=== PATIENT | female | born 1980 | race Caucasian/White ===

== ENCOUNTER 2016-07-21 08:25 | Inpatient (IN) | payer OTHER, MEDICARE ==
[~2016-07-21] VITALS: Ht 157.5 cm; Wt 44.9 kg
--- NOTE | 2016-07-21 08:37 | NUR ---
PT TO ED FOR MULTIPLE COMPLAINTS, REPORTING SUBJECTIVE FEVERS, ABD PAIN WITH VOMITING, ABD HERNIA PAIN, ALTERNATING CONSTIPATION AND DIARRHEA, ALSO STATING SHE BELIEVES "SOMETHING BITE ME AND IT LOOKED LIKE I HAD A HICKIE BUT I HAVEN'T HAD A DATE SO I ASSUME IT WAS A BUG" PT ALSO REPORTING FINDING A "TICK HEAD" IN HER SCALP APPROX 1 WEEK AGO.
--- NOTE | 2016-07-21 08:37 | NUR ---
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
--- NOTE | 2016-07-21 08:38 | NUR ---
PT ATTEMPTING TO DRINK GINGERALE IN TRIAGE, INSTRUCTED NOT TO DUE TO HER ABD PAIN
--- NOTE | 2016-07-21 08:40 | ED GI/GU/ABDOMINAL COMPLAINT ---
History of Present Illness General Chief Complaint: Abdominal Pain/Flank Pain Stated Complaint: LOWER ABD PAIN, FEVER LAST NIGHT Source: patient, family, old records Exam Limitations: no limitations Vital Signs & Intake/Output Vital Signs & Intake/Output Vital Signs Date Time Temp Pulse Resp B/P B/P Pulse O2 O2 Flow FiO2 Mean Ox Delivery Rate 07/21 1038 97.6 120 20 133/74 100 07/21 0859 98 Room Air 07/21 0833 96.7 141 18 114/81 100 Room Air Allergies Coded Allergies: titanium (UNKNOWN 07/21/16) TITANIUM DYE Reconcile Medications Budesonide/Formoterol Fumarate (Symbicort 80-4.5 Mcg Inhaler) (Unknown Strength) HFA.AER.AD (Unknown Dose) INH BID ASTHMA (Reported) Carisoprodol (SOMA) 350 MG TABLET 2 TAB PO Q4 PRN PAIN (Reported) Chlorzoxazone (Lorzone) 750 MG TABLET 1 TAB PO 4 TIMES/DAY PRN PAIN (Reported ) Hydrocodone/Acetaminophen (Vicodin Hp 10-300 MG Tablet) 10 MG-300 MG TABLET 1 TAB PO BID PRN PAIN (Reported) Ibuprofen 800 MG TABLET 1 TAB PO TID PAIN (Reported) Levalbuterol Tartrate (Xopenex Hfa) 45 MCG/ACTUATION HFA.AER.AD 2 PUF INH Q4-6 PRN PRN ASTHMA (Reported) Triage Note: PT TO ED FOR MULTIPLE COMPLAINTS, REPORTING SUBJECTIVE FEVERS, ABD PAIN WITH VOMITING, ABD HERNIA PAIN, ALTERNATING CONSTIPATION AND DIARRHEA, ALSO STATING SHE BELIEVES "SOMETHING BITE ME AND IT LOOKED LIKE I HAD A HICKIE BUT I HAVEN'T HAD A DATE SO I ASSUME IT WAS A BUG" PT ALSO REPORTING FINDING A "TICK HEAD" IN HER SCALP APPROX 1 WEEK AGO. Triage Nurses Notes Reviewed? yes ? N Is pt currently ? No HPI: This is a very pleasant 36-year-old female who presents to the ER chief complaint abdominal pain on and off for the past week. She states that initially she started with constipation and generalized abdominal pain. After that she developed diarrhea with vomiting. She states that she had an intermittent today where she felt much better and had some food. She states that made it worse. She feels pain at her hernia site. No history of previous surgeries. Is unable to tolerate any by mouth's. She is on Vicodin twice a day for pain management secondary to multiple ankle surgeries which she has been able to take. Denies any fever or chills. Denies any sick contacts. Last vessel. Was trace ago within normal limits. She's not been sexually active for the past 3 years. Denies any chance of . Denies any vaginal discharge. Past History Travel History Traveled to [place] past 21 day No Medical History Any Pertinent Medical History? see below for history Neurological: NONE EENT: NONE Cardiovascular: HEART MURMUR Respiratory: asthma Gastrointestinal: NONE Hepatic: NONE Renal: NONE Musculoskeletal: CHRONIC PAIN Psychiatric: NONE Blood Disorders: NONE Cancer(s): NONE Surgical History Surgical History: 19 ANKLE SURGERIES Psychosocial History What is your primary language Jamaican Tobacco Use: Current Daily Use Daily Tobacco Use Amount/Type: => 5 Cigarettes daily ETOH Use: occasional use Illicit Drug Use: marijuana Review of Systems Review of Systems Constitutional: Reports: chills. Denies: fever. Respiratory: Reports: no symptoms. Cardiovascular: Reports: no symptoms. GI: Reports: abdominal pain, bloating, constipation, nausea, vomiting. Genitourinary: Reports: no symptoms. Skin: Reports: no symptoms. Hematologic/Endocrine: Denies: bruising, bleeding, polyuria, polydipsia. Immunologic/Allergic: Denies: splenectomy. All Other Systems: Reviewed and Negative Progress Plan of Care: Orders Procedure Date/time Status Add-on Test (ER Only) 07/21 1229 Active Ambriz, Insertion/Removal/Asses 07/21 1212 Active CULTURE,URINE 07/21 1212 Active Add-on Test (ER Only) 07/21 1209 Active EKG 07/21 1115 Active Add-on Test (ER Only) 07/21 1110 Active URINE 07/21 0945 Complete TYPE & SCREEN (NOT X-MATCH) 07/21 0854 Complete URINALYSIS 07/21 0848 Complete PARTIAL THROMBOPLASTIN TIME 07/21 0848 Complete PROTHROMBIN TIME 07/21 0848 Complete LYME TITRE 07/21 0848 Complete LIPASE 07/21 0848 Complete COMPREHENSIVE METABOLIC PANEL 07/21 0848 Complete CBC WITHOUT DIFFERENTIAL 07/21 0848 Complete AMYLASE 07/21 0848 Complete Current Medications Sig/Tom Start time Last Medication Dose Stop Time Status Admin Ampicillin Sodium/ 3,000 MG ONCE ONE 07/21 1115 CAN Sulbactam Sodium 07/21 1144 (Unasyn) Sodium Chloride 100 ML (Normal Saline 0.9%) Laboratory Tests 07/21/16944: Urine Test NEGATIVE 07/21/16944: Urine Color YEL, Urine Clarity CLEAR, Urine pH 6.0, Ur Specific [place] 1.010, Urine Protein TRACE H, Urine Ketones NEG, Urine Nitrite NEG, Urine Bilirubin NEG, Urine Urobilinogen 0.2, Ur Leukocyte Esterase NEG, Ur Microscopic SEDIMENT EXAMINED, Urine RBC 1-3, Urine WBC 1-3 H, Ur Epithelial Cells MOD H, Urine Bacteria MOD H, Urine Hemoglobin NEG, Urine Glucose NEG 07/21/16 0854: Anion Gap 12, Estimated GFR > 60, BUN/Creatinine Ratio 18.8, Glucose 109 H, Calcium 8.6, Total Bilirubin 0.5, AST 30, ALT 26, Alkaline Phosphatase 59, Total Protein 6.3, Albumin 3.4 L, Globulin 2.9, Albumin/Globulin Ratio 1.2, Amylase 147 H, Lipase 48, PT 14.2 H, INR 1.36 H, APTT 31, CBC w Diff MAN DIFF ORDERED , RBC 5.22, MCV 91.2, MCH 30.0, RDW 14.4, MPV 7.6, Segmented Neutrophils 30 L, Band Neutrophils 27 H, Lymphocytes 12 L, Monocytes 31 H, Platelet Estimate VERIFIED BY SMEAR, Normocytic RBCs VERIFIED, Normochromic RBCs VERIFIED, PUBS MCHC 32.9 L, Lyme Disease Antibody 0.29 Microbiology 07/21 944 URINE ROUT: Urine Culture - RECD CT - DIFFUSE SMALL AND LARGE BOWEL WALL THICKENING, ? DIFFUSE ENTEROCOLITIS, SCATTERED FREE AIR, SMALL AMOUNT OF ASCITES, CAN'T TELL WHERE PERFORATION IS 11:11 SURGERY PAGED 11:[address] WILLARD IN OR - MADE AWARE BY SCRUB NURSE [facility] SURGICAL PA INFORMED. (ALONSO DENISE,JOSEPH) Diagnostic Imaging: Viewed by Me: CT Scan. Discussed w/RAD: CT Scan. Departure Departure Time of Disposition: 3 Disposition: STILL A PATIENT Condition: Stable Clinical Impression Primary Impression: Perforated bowel Referrals: PATIENT HAS NO PRIMARY CARE DR Departure Forms: Customer Survey General Discharge Information OR/GI Note Spoke With: ADONAY DENISE,MIKEY Doan ED Treatment Decision: BYRON BURT requires urgent operative management or an emergent procedure that cannot be performed in the Emergency Room setting. Transport To: [facility] Critical Care Note Critical Care Note Critical Care Time: 30-74 min
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
--- NOTE | 2016-07-21 08:59 | NUR ---
IV EST. PT MEDICATED PER EMAR AT THIS TIME.
[2016-07-21 09:07] LABS: HEMATOCRIT 47.5 % (37-47); MEAN CORPUSCULAR HGB CONC 32.9 G/DL (33.0-37.0); MEAN CORPUSCULAR VOLUME 91.2 FL (81.0-99.0); MEAN PLATELET VOLUME 7.6 FL (7.4-10.4); PLATELET COUNT 365 /CUMM (130-400); RBC DISTRIBUTION WIDTH 14.4 % (11.5-14.5); RED BLOOD CELL CT 5.22 /CUMM (4.20-5.40); WHITE BLOOD CELL COUNT 18.6 /CUMM (4.8-10.8)
[2016-07-21 09:13] LABS: PT 14.2 SEC (9.4-12.5); PTT 31 SEC (25-37)
--- NOTE | 2016-07-21 09:30 | NUR ---
PT STATING HER PAIN IS COMING BACK AT THIS TIME, STATES SHE ONLY HAD SLIGHT RELIEF FROM PRIOR MORPHINE ADMINISTRATION. MEDICATED WITH 6MG IV MORPHINE PER MD ORDER AT THIS TIME.
--- NOTE | 2016-07-21 09:54 | NUR ---
SECOND LITER NS INFUSING PER ORDER AT THIS TIME
[2016-07-21] MEDS ORDERED: VICODIN HP 10-1 EACH PO (10:23)
[2016-07-21] MEDS ORDERED: SOMA350 M1 PO (10:24)
[2016-07-21] MEDS ORDERED: IBUPROFEN800 M1 PO (10:24)
[2016-07-21] MEDS ORDERED: SYMBICORT 80-10.2 GM INH (10:25)
[2016-07-21] MEDS ORDERED: LORZONE750 M1 PO (10:25)
[2016-07-21] MEDS ORDERED: XOPENEX HFA15 GM INH (10:26)
--- NOTE | 2016-07-21 10:49 | NUR ---
PT TO AND FROM CT SCAN AT THIS TIME
--- NOTE | 2016-07-21 10:56 | NUR ---
PT TO AND FROM [facility] AT THIS TIME, STATES PAIN IS WORSE WITH MOVEMENT IN ABDOMEN. AWARE WAITING FOR CT SCAN RESULTS AT THIS TIME
--- NOTE | 2016-07-21 11:28 | NUR ---
PT MEDICATED WITH DILAUDID PER ORDER AT THIS TIME
--- NOTE | 2016-07-21 11:35 | NUR ---
PINK TOP HEMOLYZED. NEEDS REDRAW
--- NOTE | 2016-07-21 11:39 | NUR ---
PT MEDICATED PER EAMR AT THIS TIME. SURGICAL PA AT BEDSIDE.
--- NOTE | 2016-07-21 11:41 | CT SCAN REPORT ---
EXAMINATION: CT ABDOMEN AND PELVIS WITH CONTRAST CLINICAL INFORMATION: Abdominal pain, vomiting, palpable epigastric hernia. Presumptive diagnosis: Obstruction. COMPARISON: None TECHNIQUE: Multidetector volumetric imaging was performed of the abdomen and pelvis before and after the IV administration of 95 mL of Optiray 320 intravenous contrast. Sagittal and coronal reformatted images were obtained on the technologist's workstation. DLP: 263.39 mGy-cm FINDINGS: LUNG BASES: There are ill-defined scattered ground-glass opacities at both lung bases. This may represent atelectasis or a subtle inflammatory process. LIVER, GALLBLADDER, AND BILIARY TREE: The liver is normal in size, shape, and attenuation. No focal hepatic lesion or biliary ductal dilatation is present. The gallbladder is unremarkable with no evidence of radiopaque gallstones, gallbladder wall thickening, or obvious pericholecystic inflammatory changes. PANCREAS: Unremarkable. SPLEEN: Unremarkable. ADRENAL GLANDS: Unremarkable. KIDNEYS AND URETERS: There are a few scattered tiny calcifications in both kidneys. There is a focal area of moderate scarring in the posterior aspect of the upper pole of the left kidney. There is nonspecific mild bilateral hydronephrosis. BLADDER: Unremarkable. GASTROINTESTINAL TRACT: There is diffuse thickening of the wall of the small and large bowel. There are scattered bubbles of free air in the mesentery, adjacent to small and large bowel loops, and independently in the anterior aspect of the upper abdomen. There is a small amount of ascites in the abdomen and pelvis. The appendix is not clearly identified. ABDOMINAL WALL: No significant hernia is appreciated. LYMPH NODES: Normal. VASCULAR: Unremarkable. PELVIC VISCERA: Unremarkable. OSSEOUS STRUCTURES: Unremarkable. IMPRESSION: 1. Scattered ill-defined ground-glass opacities at the lung bases which may represent atelectasis or a subtle inflammatory process. 2. Diffuse small and large bowel wall thickening suspicious for enterocolitis. Scattered bubbles of free air suspicious for a perforation. A small amount of ascites in the abdomen and pelvis. 3. Scattered small bilateral renal calculi. Nonspecific mild bilateral hydronephrosis. This Critical Result was discussed with Merlyn Razo on 07/21/2016 at 1115 hours.
--- NOTE | 2016-07-21 12:23 | NUR ---
[place] PLACED PER ORDER AT THIS TIME, PT STATING SHE FELS THE URGE TO VOID BUT UNABLE TO GO AT THIS TIME.
--- NOTE | 2016-07-21 12:27 | NUR ---
DR KNOWLES AT BEDSIDE
--- NOTE | 2016-07-21 13:08 | NUR ---
PER OR, DISTRIBUTION COMMING TO GET PT AT THIS TIME. PT PERFORMING PRE-OP SCRUB AT THIS TIME
--- NOTE | 2016-07-21 13:15 | NUR ---
[facility] HERE TO TAKE PT TO OR
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
--- NOTE | 2016-07-21 17:54 | Admission Core Measures ---
Admission Lab Results I reviewed the following labs: Laboratory Tests 07/21 07/21 0969 0945 Urines Urine Color (YEL,AMB,STR) YEL Urine Clarity (CLEAR) CLEAR Urine pH (5.0 - 8.0) 6.0 Ur Specific [place] (1.001 - 1.035) 1.010 Urine Protein (NEG,<30 MG/DL) TRACE H Urine Ketones (NEG) NEG Urine Nitrite (NEG) NEG Urine Bilirubin (NEG) NEG Urine Urobilinogen (0.1 - 1.0 EU/dl) 0.2 Ur Leukocyte Esterase (NEG) NEG Ur Microscopic SEDIMENT EXAMINED Urine RBC (0 - 5 /HPF) 1-3 Urine WBC (0 - 2 /HPF) 1-3 H Ur Epithelial Cells (NONE,FEW) MOD H Urine Bacteria (NEG/NONE) MOD H Urine Hemoglobin (NEG) NEG Urine Glucose (N MG/DL) NEG Urine Test NEGATIVE 07/21 0854 Chemistry Sodium (137 - 145 mmol/L) 133 L Potassium (3.5 - 5.1 mmol/L) 3.9 Chloride (98 - 107 mmol/L) 97 L Carbon Dioxide (22 - 30 mmol/L) 24 Anion Gap (5 - 16) 12 BUN (7 - 17 mg/dL) 15 Creatinine (0.5 - 1.0 mg/dL) 0.8 Estimated GFR (>60 ml/min) > 60 BUN/Creatinine Ratio (7 - 25 %) 18.8 Glucose (65 - 99 mg/dL) 109 H Calcium (8.4 - 10.2 mg/dL) 8.6 Total Bilirubin (0.2 - 1.3 mg/dL) 0.5 AST (14 - 36 U/L) 30 ALT (9 - 52 U/L) 26 Alkaline Phosphatase (<127 U/L) 59 Total Protein (6.3 - 8.2 g/dL) 6.3 Albumin (3.5 - 5.0 g/dL) 3.4 L Globulin (1.9 - 4.2 gm/dL) 2.9 Albumin/Globulin Ratio (1.1 - 2.2 %) 1.2 Amylase (30 - 110 U/L) 147 H Lipase (23 - 300 U/L) 48 Coagulation PT (9.4 - 12.5 SEC) 14.2 H INR (0.90 - 1.19) 1.36 H APTT (25 - 37 SEC) 31 Hematology CBC w Diff MAN DIFF ORDERED WBC (4.8 - 10.8 /CUMM) 18.6 H RBC (4.20 - 5.40 /CUMM) 5.22 Hgb (12.0 - 16.0 G/DL) 15.6 Hct (37 - 47 %) 47.5 H MCV (81.0 - 99.0 FL) 91.2 MCH (27.0 - 31.0 PG) 30.0 RDW (11.5 - 14.5 %) 14.4 Plt Count (130 - 400 /CUMM) 365 MPV (7.4 - 10.4 FL) 7.6 Segmented Neutrophils (42.2 - 75.2 %) 30 L Band Neutrophils (0.0 - 5.0 %) 27 H Lymphocytes (20.5 - 51.1 %) 12 L Monocytes (1.7 - 9.3 %) 31 H Platelet Estimate (ADEQUATE) VERIFIED BY SMEAR Normocytic RBCs VERIFIED Normochromic RBCs VERIFIED PUBS MCHC (33.0 - 37.0 G/DL) 32.9 L Serology Lyme Disease Antibody (RATIO) 0.29 Admission Meds I reviewed the following Meds: Current Medications Sig/Tom Start time Last Medication Dose Stop Time Status Admin Albuterol Sulfate 2 PUF Q4 PRN 07/21 1800 UNVr (Ventolin) Ampicillin Sodium/ 3,000 MG ONCE ONE 07/21 1115 CAN Sulbactam Sodium 07/21 1144 (Unasyn) Sodium Chloride 100 ML (Normal Saline 0.9%) Budesonide/ 2 PUF BID 07/21 2200 UNVr Formoterol Fumarate (SYMBICORT) Diazepam 2 MG ONCE PRN 07/21 1800 UNVr (Valium) Nicotine 21 MG DAILY 07/22 1000 UNVr (Nicoderm) Acute Coronary Syndrome Inclusion Criteria ACS Diagnosis No Inpatient Core Measures LDL Reminder: If No, please order W/I first 24hr of stay Congestive Heart Failure Inclusion Criteria CHF Diagnosis No Cerebrovascular accident Inclusion Criteria CVA/TIA Diagnosis No Inpatient Core Measures Bedside Swallow Eval Reminder: If BSE failed, place ST order Antithrombotic Reminder: Order Antithrombotic Medication by end of day 2 Antithrombotic Reminder: Document Reason Antithrombotic Not ordered by end of day 2 AFIB/Flutter Reminder: If Present, add to problem list AFIB/Flutter Reminder: Order Anticoag Medication for pts with AFIB/Flutter Atherosclerosis Reminder: If Present, add to problem list LDL Reminder: If No, please order W/I first 24hr of stay PT Order Reminder: If No, please order Venous thromboembolism Inpatient Core Measures VTE Risk Factors: Surgery No [facility] VTE prophylaxis d/t No contraindications No VTE Pharm Prophylaxis d/t No contraindications Inclusion Criteria - Per Current guidelines, there needs to be overlap - treatment for the first 5 days of Warfarin therapy. - Parenteral Anticoagulation (IV or SC) needs to be - given along with Warfarin therapy. VTE Diagnosis No VTE Type NONE VTE Confirmed by (Test) NONE Problem List As ranked by this Provider includes Assessment & Plan 1. Perforated bowel 2. Peritonitis HOME MEDS Home Med List Budesonide/Formoterol Fumarate (Symbicort 80-4.5 Mcg Inhaler) (Unknown Strength) HFA.AER.AD (Unknown Dose) INH BID ASTHMA (Reported) Carisoprodol (SOMA) 350 MG TABLET 2 TAB PO Q4 PRN PAIN (Reported) Chlorzoxazone (Lorzone) 750 MG TABLET 1 TAB PO 4 TIMES/DAY PRN PAIN (Reported ) Hydrocodone/Acetaminophen (Vicodin Hp 10-300 MG Tablet) 10 MG-300 MG TABLET 1 TAB PO BID PRN PAIN (Reported) Ibuprofen 800 MG TABLET 1 TAB PO TID PAIN (Reported) Levalbuterol Tartrate (Xopenex Hfa) 45 MCG/ACTUATION HFA.AER.AD 2 PUF INH Q4-6 PRN PRN ASTHMA (Reported)
[2016-07-21 20:00] VITALS: BP 130/70
--- NOTE | 2016-07-21 21:41 | PN- General Surgery ---
Subjective Subjective: POSTOP CHECK pain, requesting more meds. no n/v/cp/sob. itchy Objective Vital Signs and I&Os Vital Signs Date Time Temp Pulse Resp B/P B/P Pulse O2 O2 Flow FiO2 Mean Ox Delivery Rate 07/21 1957 95 Nasal 3.0L Cannula 07/21 1301 97.7 120 18 128/76 95 Room Air 07/21 1038 97.6 120 20 133/74 100 07/21 0859 98 Room Air 07/21 0833 96.7 141 18 114/81 100 Room Air Intake & Output 07/21 1600 07/21 0807/21 0000 07/20 1600 07/20 0807/20 0000 Intake Total 2000 Output Total Balance 2000 Intake, IV 1999 Patient 99 lb 15.99 oz Weight Weight Reported by Patient Measurement Method Physical Exam: GEN: NAD SKIN: no rashes CARD: s1s2 tachy but regular PULM: CTAB ABD: midline dressing serosang staining, distended, tympanic, ttp thoughoutm, stoma pink and edematous, scant serosang drainage in bag EXT:calves soft, nt, no ALPS Current Medications: Current Medications Sig/Tom Start time Last Medication Dose Route Stop Time Status Admin Acetaminophen 1,000 MG Q6H PRN 07/22 1999 AC N/A 1 UNIT IV Albuterol Sulfate 2 PUF Q4P PRN 07/21 1800 DC INH Ampicillin Sodium/ 3,000 MG ONCE ONE 07/21 1115 CAN Sulbactam Sodium IV 07/21 1144 Sodium Chloride 100 ML Budesonide/ 2 PUF BID 07/21 2200 DC Formoterol Fumarate INH Ceftriaxone Sodium 1,000 MG DAILY 07/22 1000 AC IV Ceftriaxone Sodium 0 .STK-MED ONE 07/21 1135 DC .ROUTE Ceftriaxone Sodium 1,000 MG ONCE ONE 07/21 1130 DC 07/21 IV 07/21 1131 1139 Diazepam 2 MG ONCE PRN 07/21 1800 DC IV Heparin Sodium 5,000 UNIT Q8 07/22 0600 DC (Porcine) SC Hydromorphone HCl 1 MG Q2-3 HRS NEEDED.. 07/22 1999 AC 07/21 IV 2030 Hydromorphone HCl 0.4 MG Q2-3 HRS NEEDED.. 07/22 1999 AC IV Hydromorphone HCl 0.6 MG Q3 PRN 07/21 1800 AC IV Hydromorphone HCl 0 .STK-MED ONE 07/21 1113 DC .ROUTE Hydromorphone HCl 1 MG ONCE ONE 07/21 1100 DC / IV 07/21 1101 1128 Metronidazole 500 MG IQ8 07/22 0000 AC N/A 1 UNIT IV Metronidazole 500 MG ONCE ONE 07/21 1130 DC 07/21 N/A 1 UNIT IV / 1229 1139 Morphine Sulfate 0 .STK-MED ONE 07/21 0933 DC .ROUTE Morphine Sulfate 6 MG ONCE ONE 07/21 0930 DC 07/21 IV 07/21 0931 0930 Morphine Sulfate 4 MG ONCE ONE 07/21 0900 DC / IV 07/21 0901 0858 Morphine Sulfate 0 .STK-MED ONE 07/21 0858 DC .ROUTE Nicotine 21 MG DAILY 07/22 1000 DC TOP Nicotine 0 .STK-MED ONE 07/21 1135 DC TOP Nicotine 21 MG ONCE ONE 07/21 1130 DC 07/21 TOP 07/21 1131 1139 Ondansetron HCl 4 MG ONCE ONE 07/21 0900 DC 07/21 IV 07/21 0901 0858 Ondansetron HCl 0 .STK-MED ONE 07/21 0857 DC .ROUTE Potassium Chloride 20 MEQ Q10H 07/21 2000 AC 07/21 Dextrose/Sodium 1,000 ML IV 2031 Chloride Sodium Chloride 1,000 ML BOLUS ONE 07/21 1130 DC / IV / 1229 1144 Sodium Chloride 1,000 ML BOLUS ONE 07/21 1000 DC / IV 07/21 1059 0954 Sodium Chloride 1,000 ML BOLUS ONE 07/21 0900 DC / IV 07/21 0959 0850 Results Last 48 Hours of Labs: Laboratory Tests 07/21 07/21 0945 0945 Urines Urine Color (YEL,AMB,STR) YEL Urine Clarity (CLEAR) CLEAR Urine pH (5.0 - 8.0) 6.0 Ur Specific T[place] (1.001 - 1.035) 1.010 Urine Protein (NEG,<30 MG/DL) TRACE H Urine Ketones (NEG) NEG Urine Nitrite (NEG) NEG Urine Bilirubin (NEG) NEG Urine Urobilinogen (0.1 - 1.0 EU/dl) 0.2 Ur Leukocyte Esterase (NEG) NEG Ur Microscopic SEDIMENT EXAMINED Urine RBC (0 - 5 /HPF) 1-3 Urine WBC (0 - 2 /HPF) 1-3 H Ur Epithelial Cells (NONE,FEW) MOD H Urine Bacteria (NEG/NONE) MOD H Urine Hemoglobin (NEG) NEG Urine Glucose (N MG/DL) NEG Urine Test NEGATIVE 07/21 0854 Chemistry Sodium (137 - 145 mmol/L) 133 L Potassium (3.5 - 5.1 mmol/L) 3.9 Chloride (98 - 107 mmol/L) 97 L Carbon Dioxide (22 - 30 mmol/L) 24 Anion Gap (5 - 16) 12 BUN (7 - 17 mg/dL) 15 Creatinine (0.5 - 1.0 mg/dL) 0.8 Estimated GFR (>60 ml/min) > 60 BUN/Creatinine Ratio (7 - 25 %) 18.8 Glucose (65 - 99 mg/dL) 109 H Calcium (8.4 - 10.2 mg/dL) 8.6 Total Bilirubin (0.2 - 1.3 mg/dL) 0.5 AST (14 - 36 U/L) 30 ALT (9 - 52 U/L) 26 Alkaline Phosphatase (<127 U/L) 59 Total Protein (6.3 - 8.2 g/dL) 6.3 Albumin (3.5 - 5.0 g/dL) 3.4 L Globulin (1.9 - 4.2 gm/dL) 2.9 Albumin/Globulin Ratio (1.1 - 2.2 %) 1.2 Amylase (30 - 110 U/L) 147 H Lipase (23 - 300 U/L) 48 Coagulation PT (9.4 - 12.5 SEC) 14.2 H INR (0.90 - 1.19) 1.36 H APTT (25 - 37 SEC) 31 Hematology CBC w Diff MAN DIFF ORDERED WBC (4.8 - 10.8 /CUMM) 18.6 H RBC (4.20 - 5.40 /CUMM) 5.22 Hgb (12.0 - 16.0 G/DL) 15.6 Hct (37 - 47 %) 47.5 H MCV (81.0 - 99.0 FL) 91.2 MCH (27.0 - 31.0 PG) 30.0 RDW (11.5 - 14.5 %) 14.4 Plt Count (130 - 400 /CUMM) 365 MPV (7.4 - 10.4 FL) 7.6 Segmented Neutrophils (42.2 - 75.2 %) 30 L Band Neutrophils (0.0 - 5.0 %) 27 H Lymphocytes (20.5 - 51.1 %) 12 L Monocytes (1.7 - 9.3 %) 31 H Platelet Estimate (ADEQUATE) VERIFIED BY SMEAR Normocytic RBCs VERIFIED Normochromic RBCs VERIFIED PUBS MCHC (33.0 - 37.0 G/DL) 32.9 L Serology Lyme Disease Antibody (RATIO) 0.29 Assessment/Plan Assessment/Plan A: 36F POD0 sp Marcus's for perf'ed sigmoid, hx constipation from chronic pain /opioid use, currently with postop pain requiring med adjustments. P: NPO, NGT, IVF, await bowel fxn return PRN pain meds- takes chronic narcs at baseline, will increase dilaudid IV and give ofirmev atc benadryl x1 for itch DVT ppx- ALPS, hep sq, OOB, ambulate. Refusing ALPS per RN. seymour/flagyl will dw attending Core Measures/Miscellaneous Venous Thromboembolism VTE Risk Factors: Surgery VTE Contraindications: No Contraindications VTE Diagnosis: No VTE Type: NONE VTE Confirmed by (Test): NONE Beta Camila Is Beta Camila a Home Med? No Antibiotics Is Patient on Antibiotics? Yes
[2016-07-21 22:00] VITALS: BP 122/60
--- NOTE | 2016-07-21 23:47 | NUR ---
PATIENT ADMITTED FROM PACU. PATIENT ALERT AND ORIENTED X 3. NGT TO R NARE ON LWS. BINGHAM INTACT AND DRAINING CLEAR, MARIANNA URINE. COLOSTOMY INTACT. MID LINE DRESSING CLEAN, DRY AND INTACT. PATIENT C/O PAIN AT 8/10. IV DILAUDID ADMINISTERED ORDERED. HR AT 121 ON ADMISSION TO FLOOR. NORM BENNETT AWARE. PATIENT REFUSED ALPS AND RED SOCKS. NORM BENNETT AWARE. CALL LIGHT IN REACH. WILL CONTINUE TO MONITOR.
[2016-07-22 00:07] VITALS: BP 114/70
[2016-07-22 02:09] VITALS: BP 124/74
[2016-07-22 06:00] VITALS: BP 150/84
[2016-07-22 08:20] LABS: ABSOLUTE BASOPHIL COUNT 0 /CUMM (0.0-0.2); ABSOLUTE EOSINOPHIL COUNT 0.2 /CUMM (0.0-0.7); ABSOLUTE LYMPH COUNT 1.9 /CUMM (1.2-3.4); ABSOLUTE MONOCYTE COUNT 0.2 /CUMM (0.10-0.60); MEAN PLATELET VOLUME 7.9 FL (7.4-10.4)
[2016-07-22 09:08] LABS: ABSOLUTE GRANULOCYTE CT 12.3 /CUMM (1.4-6.5); BASOPHIL % 0.1 % (0.0-2.0); EOSINOPHIL % 1.3 % (0-5); MEAN CORPUSCULAR HGB CONC 33.6 G/DL (33.0-37.0); MEAN CORPUSCULAR VOLUME 89.5 FL (81.0-99.0); PLATELET COUNT 296 /CUMM (130-400); RBC DISTRIBUTION WIDTH 14.7 % (11.5-14.5); RED BLOOD CELL CT 4.24 /CUMM (4.20-5.40); WHITE BLOOD CELL COUNT 14.6 /CUMM (4.8-10.8)
[2016-07-22 09:21] LABS: GRANULOCYTE % 84.2 % (42.2-75.2)
--- NOTE | 2016-07-22 11:08 | PN- General Surgery ---
See Addendum Subjective Subjective: Pt complaining of pain Of note she takes between 2 and 10 pills of 10mg vicodin daily at home Post op was on dilaudid IV but complaining of itching requiring benadryl times 2. No known history of allergy to dilaudid. No hives or SOB Objective Vital Signs and I&Os Vital Signs Date Time Temp Pulse Resp B/P B/P Pulse O2 O2 Flow FiO2 Mean Ox Delivery Rate 07/22 06 98.7 116 16 150/84 91 Room Air 07/22 0209 98.8 116 16 124/74 93 Room Air 07/22 0007 98.0 118 16 114/70 93 Room Air 07/22 0000 Nasal 3.0L Cannula 07/21 2200 98.7 113 20 122/60 92 Room Air 07/22 1999 95 Nasal 3.0L Cannula 07/22 1999 98.3 121 16 130/70 95 Nasal 3.0L Cannula 07/21 1958 95 Nasal 3.0L Cannula 07/21 1301 97.7 120 18 128/76 95 Room Air Intake & Output 07/22 1600 07/22 0800 07/22 0000 07/21 1600 07/21 0800 07/21 0000 Intake Total 8667 928 6391 Output Total 600 250 Balance 973 54 8315 Intake, IV 4075 549 7772 Intake, Oral 0 Output, 75 Gastric Drainage Output, Urine 525 250 Patient 99 lb 0.01 oz 99 lb 15.99 oz 99 lb 15.99 oz Weight Weight Reported by Patient Measurement Method Physical Exam: afebrile, vss General: alert and oriented times three Chest: clear anteriorly bilaterally, RRR Abd: soft, nondistended, hypoactive bs, ostomy pink with some serosang fluid in bag Wound: packing in place, mica intact, no drainage Current Medications: Current Medications Sig/Tom Start time Last Medication Dose Route Stop Time Status Admin Acetaminophen 1,000 MG Q6H 07/22 0400 AC 07/22 N/A 1 UNIT IV 07/22 1614 0941 Acetaminophen 1,000 MG ONCE ONE 07/21 2230 DC 07/21 N/A 1 UNIT IV 07/21 2244 2233 Acetaminophen 1,000 MG Q6H PRN 07/21 2000 DC N/A 1 UNIT IV Albuterol Sulfate 2 PUF Q4P PRN 07/21 1800 DC INH Ampicillin Sodium/ 3,000 MG ONCE ONE 07/21 1115 CAN Sulbactam Sodium IV 07/21 1144 Sodium Chloride 100 ML Budesonide/ 2 PUF BID 07/21 2200 DC Formoterol Fumarate INH Ceftriaxone Sodium 1,000 MG DAILY 07/22 1000 AC 07/22 IV 0942 Ceftriaxone Sodium 0 .STK-MED ONE 07/21 1135 DC .ROUTE Ceftriaxone Sodium 1,000 MG ONCE ONE 07/21 1130 DC 07/21 IV 07/21 1131 1139 Diazepam 2 MG ONCE PRN 07/21 1800 DC IV Diphenhydramine HCl 50 MG Q4P PRN 07/22 0830 AC 07/22 IV 0822 Diphenhydramine HCl 25 MG ONCE ONE 07/21 2245 DC 07/21 IV 07/21 2246 2254 Heparin Sodium 5,000 UNIT Q8 07/22 0600 DC (Porcine) SC Heparin Sodium 5,000 UNIT Q8 07/22 0600 AC (Porcine) SC Hydromorphone HCl 2 MG Q2-3 HRS NEEDED.. 07/21 2230 DC 07/22 IV 0718 Hydromorphone HCl 1 MG Q2-3 HRS NEEDED.. 07/21 2230 DC IV Hydromorphone HCl 0.6 MG Q2-3 HRS NEEDED.. 07/21 2230 DC IV Hydromorphone HCl 1 MG Q2-3 HRS NEEDED.. 07/22 1999 DC 07/21 IV 2030 Hydromorphone HCl 0.4 MG Q2-3 HRS NEEDED.. 07/21 2000 DC IV Hydromorphone HCl 0.6 MG Q3 PRN 07/21 1800 DC IV Hydromorphone HCl 0 .STK-MED ONE 07/21 1113 DC .ROUTE Hydroxyzine HCl 25 MG ONCE ONE 07/22 0015 DC 07/22 PO 07/22 0016 0041 Metronidazole 500 MG IQ8 07/22 0000 AC 07/22 N/A 1 UNIT IV 0803 Metronidazole 500 MG ONCE ONE 07/21 1130 DC 07/21 N/A 1 UNIT IV 07/21 1229 1139 Morphine Sulfate 2 MG Q3P PRN 07/22 0830 AC IV Morphine Sulfate 4 MG Q3P PRN 07/22 0830 AC 07/22 IV 0910 Nicotine 21 MG DAILY 07/22 1000 DC TOP Nicotine 0 .STK-MED ONE 07/21 1135 DC TOP Nicotine 21 MG ONCE ONE 07/21 1130 DC 07/21 TOP 07/21 1131 1139 Ondansetron HCl 4 MG Q6P PRN 07/21 2245 AC IV Potassium Chloride 20 MEQ Q10H 07/22 1999 AC 07/22 Dextrose/Sodium 1,000 ML IV 0247 Chloride Sodium Chloride 1,000 ML BOLUS ONE 07/21 1130 DC 07/21 IV 07/21 1229 1144 Assessment/Plan Assessment/Plan 36yo female with chronic pain - sees pain management Dr Meraz, no s/p hernández's secondary to perf ?diverticulitis vs narcotic ileus Increase morphine IV no nsaids at this time no dilaudid at this time secondary to questionable allergy await bowel function continue npo/ngt/ivf continue antibiotics dvt ppx- heparin sc Core Measures/Miscellaneous Venous Thromboembolism VTE Risk Factors: Surgery VTE Contraindications: No Contraindications VTE Diagnosis: No VTE Type: NONE VTE Confirmed by (Test): NONE Beta Camila Is Beta Camila a Home Med? No Antibiotics Is Patient on Antibiotics? Yes
[2016-07-22 11:36] VITALS: BP 120/55
[2016-07-22 14:26] VITALS: BP 120/70
--- NOTE | 2016-07-22 16:06 | NUR ---
THIS RN CALLED SURGICAL PA KITTY OROPEZA TO RENEW PT'S BINGHAM AT 1204. PA SAID SHE WOULD TALK TO DR. URIAS ABOUT REMOVAL AND GET BACK TO ME. BINGHAM NOT RENEWED DURING THIS SHIFT. MD AT BEDSIDE, WILL ASK TO RENEW OR DC.
[2016-07-22 22:20] VITALS: BP 110/58
[2016-07-23 07:02] VITALS: BP 116/70
[2016-07-23 08:49] LABS: ABSOLUTE BASOPHIL COUNT 0 /CUMM (0.0-0.2); ABSOLUTE EOSINOPHIL COUNT 0.1 /CUMM (0.0-0.7); ABSOLUTE GRANULOCYTE CT 15.3 /CUMM (1.4-6.5); ABSOLUTE LYMPH COUNT 2.2 /CUMM (1.2-3.4); ABSOLUTE MONOCYTE COUNT 0.6 /CUMM (0.10-0.60); BASOPHIL % 0.1 % (0.0-2.0); EOSINOPHIL % 0.6 % (0-5); GRANULOCYTE % 83.9 % (42.2-75.2); HEMATOCRIT 34.4 % (37-47); MEAN CORPUSCULAR HGB 30.2 PG (27.0-31.0); MEAN CORPUSCULAR HGB CONC 33.4 G/DL (33.0-37.0); MEAN CORPUSCULAR VOLUME 90.5 FL (81.0-99.0); MEAN PLATELET VOLUME 7.7 FL (7.4-10.4); PLATELET COUNT 286 /CUMM (130-400); RBC DISTRIBUTION WIDTH 14.3 % (11.5-14.5); RED BLOOD CELL CT 3.81 /CUMM (4.20-5.40); WHITE BLOOD CELL COUNT 18.2 /CUMM (4.8-10.8)
--- NOTE | 2016-07-23 09:44 | PN- General Surgery ---
See Addendum Subjective Subjective: Patient's pain is better controlled with IV morphine and she is not itchy any longer. She states that she is feeling better today than yesterday. Objective Vital Signs and I&Os Vital Signs Date Time Temp Pulse Resp B/P B/P Pulse O2 O2 Flow FiO2 Mean Ox Delivery Rate 07/23 0702 98.5 113 20 116/70 92 Room Air 07/22 2220 99.8 113 20 110/58 93 Room Air 07/22 1445 Room Air 07/22 1426 98.8 80 20 120/70 96 /03 1136 98.1 66 20 120/55 96 Intake & Output 07/23 1600 07/23 0800 07/23 0000 07/22 1600 07/22 0800 07/22 0000 Intake Total 800 835 503 8077 300 Output Total 250 400 950 600 250 Balance 550 300 -150 400 50 Intake, IV 800 162 664 2897 300 Intake, Oral 0 0 Output, 50 0 50 75 Gastric Drainage Output, Urine 200 400 900 525 250 Patient 99 lb 0.01 oz 99 lb 15.99 oz Weight Physical Exam: Well-developed well-nourished no apparent distress. HEENT: Atraumatic, extraocular motion intact. NG tube in place. Dark bilious drainage present Neck: Supple, no lymphadenopathy Respiratory: No respiratory distress lungs clear to auscultation Heart: Mild tachycardia regular rate and rhythm Abdomen: Soft, mild to moderate tenderness. No active bowel sounds. Ostomy is pink with trace amount of thin serious fluid in the bag. Midline incision with mild amount of serous discharge. Packing in place. Packing was inched out superior and inferior and a dry sterile dressing was applied Extremities: No edema, no calf pain Neuro: Alert and oriented x3 Psych: Mood affect normal, normal memory normal judgment. Skin: Warm and dry, no rash on exposed skin Results Last 48 Hours of Labs: Laboratory Tests 07/23 07/22 0810 0615 Chemistry Sodium (137 - 145 mmol/L) 136 L 134 L Potassium (3.5 - 5.1 mmol/L) 3.0 L 3.7 Chloride (98 - 107 mmol/L) 104 104 Carbon Dioxide (22 - 30 mmol/L) 24 22 Anion Gap (5 - 16) 8 7 BUN (7 - 17 mg/dL) 9 Creatinine (0.5 - 1.0 mg/dL) 0.7 Estimated GFR (>60 ml/min) > 60 BUN/Creatinine Ratio (7 - 25 %) 12.9 Hematology CBC w Diff MAN DIFF ORDERED MAN DIFF ORDERED WBC (4.8 - 10.8 /CUMM) Pending 14.6 H RBC (4.20 - 5.40 /CUMM) Pending 4.24 Hgb (12.0 - 16.0 G/DL) Pending 12.7 Hct (37 - 47 %) Pending 38.0 MCV (81.0 - 99.0 FL) Pending 89.5 MCH (27.0 - 31.0 PG) Pending 30.0 RDW (11.5 - 14.5 %) Pending 14.7 H Plt Count (130 - 400 /CUMM) Pending 296 MPV (7.4 - 10.4 FL) Pending 7.9 Gran % (42.2 - 75.2 %) Pending 84.2 H Lymphocytes % (20.5 - 51.1 %) Pending 13.1 L Monocytes % (1.7 - 9.3 %) Pending 1.3 L Eosinophils % (0 - 5 %) Pending 1.3 Basophils % (0.0 - 2.0 %) Pending 0.1 Absolute Granulocytes (1.4 - 6.5 /CUMM) Pending 12.3 H Segmented Neutrophils (42.2 - 75.2 %) Pending 59 Band Neutrophils (0.0 - 5.0 %) 27 H Absolute Lymphocytes (1.2 - 3.4 /CUMM) Pending 1.9 Lymphocytes (20.5 - 51.1 %) 11 L Absolute Monocytes (0.10 - 0.60 /CUMM) Pending 0.2 Eosinophils (0 - 5.0 %) 3 Absolute Eosinophils (0.0 - 0.7 /CUMM) Pending 0.2 Absolute Basophils (0.0 - 0.2 /CUMM) Pending 0 Platelet Estimate (ADEQUATE) ADEQUATE Normocytic RBCs VERIFIED Normochromic RBCs VERIFIED PUBS MCHC (33.0 - 37.0 G/DL) Pending 33.6 06/02 06/ 0945 0945 Urines Urine Color (YEL,AMB,STR) YEL Urine Clarity (CLEAR) CLEAR Urine pH (5.0 - 8.0) 6.0 Ur Specific [place] (1.001 - 1.035) 1.010 Urine Protein (NEG,<30 MG/DL) TRACE H Urine Ketones (NEG) NEG Urine Nitrite (NEG) NEG Urine Bilirubin (NEG) NEG Urine Urobilinogen (0.1 - 1.0 EU/dl) 0.2 Ur Leukocyte Esterase (NEG) NEG Ur Microscopic SEDIMENT EXAMINED Urine RBC (0 - 5 /HPF) 1-3 Urine WBC (0 - 2 /HPF) 1-3 H Ur Epithelial Cells (NONE,FEW) MOD H Urine Bacteria (NEG/NONE) MOD H Urine Hemoglobin (NEG) NEG Urine Glucose (N MG/DL) NEG Urine Test NEGATIVE Assessment/Plan Assessment/Plan 36yo female postop day #2 s/p hernández's secondary to perforated diverticulum, secondary to NSAID use vs diverticulitis vs narcotic ileus Continue nothing by mouth/NG tube/IV fluids Potassium 3.0, we'll supplement with runs of KCl and recheck tomorrow Check magnesium Continue morphine IV no nsaids at this time continue antibiotics dvt ppx- heparin sc Core Measures/Miscellaneous Venous Thromboembolism VTE Risk Factors: Surgery VTE Contraindications: No Contraindications VTE Diagnosis: No VTE Type: NONE VTE Confirmed by (Test): NONE Beta Camila Is Beta Camila a Home Med? No Antibiotics Is Patient on Antibiotics? Yes
[2016-07-23 14:04] VITALS: BP 130/80
[2016-07-23 22:28] VITALS: BP 132/80
[2016-07-24 06:49] VITALS: BP 136/80
--- NOTE | 2016-07-24 07:52 | PN- General Surgery ---
See Addendum Subjective Subjective: No acute overnight events reported. Patient states that she is having incisional discomfort but no complaints of chest pain, shortness of breath or difficulty breathing. Is tolerating NG tube, no nausea or vomitting, although output has increased overnight. She continues to ask for ice chips. Objective Vital Signs and I&Os Vital Signs Date Time Temp Pulse Resp B/P B/P Pulse O2 O2 Flow FiO2 Mean Ox Delivery Rate 07/24 0649 99.2 98 20 136/80 94 Room Air 07/23 2228 99.5 103 20 132/80 94 Room Air 07/23 1404 99.2 105 20 130/80 95 Intake & Output 07/24 0800 07/24 0000 07/23 1600 07/23 0800 07/23 0000 07/22 1600 Intake Total 700 800 800 700 800 Output Total 1400 660 250 400 950 Balance -700 140 550 300 -150 Intake, IV 700 800 800 700 800 Intake, Oral 0 0 0 Output, 600 60 50 0 50 Gastric Drainage Output, Urine 800 600 200 400 900 Patient 99 lb 0.01 oz Weight Physical Exam: General: Alert and oriented x3, no acute distress Cardiac: RRR, s1s2 Pulm: CTA bilaterally Abdomen: Soft, no bowel sounds auscultated. Ostomy bag with minimal amout of air, and scant serosanguinous drainage. Dressing dry, packing dry, inched out 1 /2" superior and inferior and trimmed, skin edges well approximated, mica in place, no surrounding erythema, new dressing applied. Extremities: Moves all extremities, distal sensation intact. Skin warm and well perfused. Calves soft and non-tender Assessment/Plan Assessment/Plan This is a 36 year old female now post op day 3, s/p marla. -Continue current pain regimen, pt has been tolerating pain with 4 mg of morphine, would not increase dose at this point -Continue npo and maintain ngt to low wall suction. Monitor output. May consider clamping trial. -Hypokalemic, potassium repleted yesterday, follow up labs today. -DVT ppx: sq heparin being given, pt has been refusing alps, ambulation recommended -Incentive spirometry encouraged -Will discuss with Dr. Larios Core Measures/Miscellaneous Venous Thromboembolism VTE Risk Factors: Surgery VTE Contraindications: No Contraindications VTE Diagnosis: No VTE Type: NONE VTE Confirmed by (Test): NONE Beta Camila Is Beta Camila a Home Med? No Antibiotics Is Patient on Antibiotics? Yes
[2016-07-24 08:10] LABS: ABSOLUTE BASOPHIL COUNT 0 /CUMM (0.0-0.2); ABSOLUTE EOSINOPHIL COUNT 0.2 /CUMM (0.0-0.7); ABSOLUTE GRANULOCYTE CT 9.8 /CUMM (1.4-6.5); ABSOLUTE MONOCYTE COUNT 0.8 /CUMM (0.10-0.60); BASOPHIL % 0.3 % (0.0-2.0); EOSINOPHIL % 1.7 % (0-5); GRANULOCYTE % 75.9 % (42.2-75.2); HEMATOCRIT 32.3 % (37-47); MEAN CORPUSCULAR HGB CONC 33.7 G/DL (33.0-37.0); MEAN CORPUSCULAR VOLUME 89.1 FL (81.0-99.0); MEAN PLATELET VOLUME 7.2 FL (7.4-10.4); PLATELET COUNT 317 /CUMM (130-400); RBC DISTRIBUTION WIDTH 14.1 % (11.5-14.5); RED BLOOD CELL CT 3.62 /CUMM (4.20-5.40); WHITE BLOOD CELL COUNT 12.9 /CUMM (4.8-10.8)
[2016-07-24 14:10] VITALS: BP 126/72
--- NOTE | 2016-07-24 17:17 | Operative Report ---
Operative/Inv Procedure Report Surgery Date: 07/21/16 Name of Procedure: Garza's procedure Pre-Operative Diagnosis: Perforated bowel Post-Operative Diagnosis: Perforated sigmoid colon Estimated Blood Loss: scant Surgeon/Batch Freezer Operator: ADONAY DENISE,MIKEY ZHENG Anesthesia: general endotracheal tube Operative/Procedure Note Note: Patient placed on the OR table supine after timeouts and successful induction of general anesthesia and another timeout her abdomen was prepped and draped in usual sterile fashion. She already received IV antibiotics recently in the ER, her impression was that this was probably an infraumbilical source so we made a midline incision between the umbilicus and the pubis, after finding the midline beneath the muscle we incised it entering the peritoneum there was pus in the pelvis there was fluid throughout her abdomen but this was the epicenter there was a thick fibrin peel on most of the surfaces especially the small bowel loops and it took some time but there was a small hole found in the proximal sigmoid colon which itself along with the distal descending colon were circumferentially edematous this portion was dissected first freed up laterally along the white line of Toldt then the sigmoid mesentery was scored medially there were no obvious diverticula seen the mesentery itself was not really thickened the perforation looked like an ulcer but it could've been a tic or some type of other lesion distally we divided the sigmoid with a TA stapler and proximally we divided it with a DEBORA stapler we checked the distal stump for hemostasis them he had more room to more deliberately irrigate of note laterally during the dissection care was taken to preserve the gonadal vessels and especially the ureter which was deeper and a little more medial to our level of dissection, she did not have a long redundant sigmoid colon lesion was a little bit proximal we were concerned we would not be able to get enough laxity to put up to the abdominal wall but overall she was thin and after mobilizing a little bit but not eating to mobilize the splenic flexure I felt we had enough length to bring it out, we aimed on the anterior abdominal wall in the left lower quadrant. A circular incision in the skin with cautery on cutting then deepened it through the subcutaneous layers split the muscle. A cruciate incision the posterior sheath transversalis fascia and peritoneum large enough to admit 2 fingers and then guided without twisting the proximal divided end of the colon. Then returned to the main area of perforation irrigated some more we checked position of the NG tube also made sure we irrigated beneath both diaphragms and also in between the loops of small bowel of note her appendix appeared normal there was some secondary inflammatory changes on both ovaries next we closed the midline fascia with 0 Maxon continuous irrigated the subcutaneous layer reapproximated in parts with subdermal Vicryl sutures and then mica for skin but leaving gaps for iodoform milind recovered that incision and then matured the colostomy in Eli fashion first by cutting off the staple line from the DEBORA stapler using multiple interrupted 3-0 Vicryl sutures everting the cut edges of bowel wall and the appliance was secured, and fluff and an island dressing was placed on the midline. EBL minimal lap and sponge counts correct wound expectancy infected IV fluids crystalloid complications none patient tolerated the procedure well was extubated and returned to recovery room in satisfactory condition.
[2016-07-24 22:23] VITALS: BP 121/81
--- NOTE | 2016-07-24 22:23 | NUR ---
SHIFT NOTE- PT A/O X 3, ON RA, LUNGS CLEAR/DIMINISHED. IST AT BEDSIDE AND PT IS USING. NPO WITH ICE CHIPS. C/O PAIN 7-8 TO ABD SURGICAL SITES- MEDICATED WITH PRN IV MORPHINE. DRESSING TO ABD CD+I, COLOSTOMY WITH SMALL AMT SS DRAINAGE. +BS X 4. IV ABX GIVEN ORDERED, WELL IV BOLUSES OF POTASSIUM. PT ASKING FOR "SOMETHING FOR SLEEP" STATES SHE HASNT BEEN SLEEPING WHILE IN THE HOSPITAL. CALL PLACED TO SURGICAL PA- SEE NEW ORDER FOR MELATONIN. PT RECEIVING SC HEPARIN, AND AMBULATING IN ROOM INDEP. WILL CONTINUE TO MONITOR.
[2016-07-25 06:52] VITALS: BP 140/80
[2016-07-25 08:42] LABS: ABSOLUTE BASOPHIL COUNT 0 /CUMM (0.0-0.2); ABSOLUTE EOSINOPHIL COUNT 0.4 /CUMM (0.0-0.7); ABSOLUTE GRANULOCYTE CT 8.5 /CUMM (1.4-6.5); ABSOLUTE LYMPH COUNT 2.1 /CUMM (1.2-3.4); ABSOLUTE MONOCYTE COUNT 0.9 /CUMM (0.10-0.60); BASOPHIL % 0.4 % (0.0-2.0); EOSINOPHIL % 3.6 % (0-5); GRANULOCYTE % 70.8 % (42.2-75.2); HEMATOCRIT 34.3 % (37-47); MEAN CORPUSCULAR HGB 29.9 PG (27.0-31.0); MEAN CORPUSCULAR HGB CONC 33.6 G/DL (33.0-37.0); MEAN CORPUSCULAR VOLUME 88.9 FL (81.0-99.0); MEAN PLATELET VOLUME 7.4 FL (7.4-10.4); PLATELET COUNT 351 /CUMM (130-400); RBC DISTRIBUTION WIDTH 14.4 % (11.5-14.5); RED BLOOD CELL CT 3.85 /CUMM (4.20-5.40)
--- NOTE | 2016-07-25 09:04 | PN- General Surgery ---
See Addendum Subjective Subjective: No acute overnight events. Pt more mobile, tolererating pain, states mostly incisional. NGT removed yesterday. No nausea or vomitting. No chest pain or shortness of breath. No difficulty voiding. Objective Vital Signs and I&Os Vital Signs Date Time Temp Pulse Resp B/P B/P Pulse O2 O2 Flow FiO2 Mean Ox Delivery Rate 07/25 0652 97.9 96 16 140/80 92 Room Air 07/24 2223 98.1 96 20 121/81 94 Room Air 07/24 1410 97.7 97 20 126/72 95 Intake & Output 07/25 1600 07/25 0800 / 0000 / 1600 / 0800 07/24 0000 Intake Total 1600 660 800 700 Output Total 110 763 6693 Balance 1600 -140 200 -700 Intake, IV 1600 600 800 700 Intake, Oral 60 0 Output, 200 600 600 Gastric Drainage Output, Urine 600 800 Physical Exam: Gen: AAO x3, no acute distress, no hiccuping, no belching Card: RRR, s1s2 Pulm: CTA bilaterally ABD: Non-distended, stoma pink, some small amount of mucous noted, serous fluid in bag, small amount, small amount of air. Incision skin edges well approximated, no surrounding erythema. Packing in place, backed out 1/2 inch both ends, clean dressing reapplied, no drainage noted. Extremities: Moves all extremities, neurovascular intact. Calves soft and non- tender bilaterally Assessment/Plan Assessment/Plan This is a 36 year old female now post op day 4, s/p hartmans, bowel function slowly returning. -Continue current pain regimen, pt has been tolerating pain with 4 mg of morphine, would not increase dose at this point -Continue clear liquid diet, will consider advancing when stool formation noted -Hypokalemic, potassium repleted over two days, follow up labs today. -DVT ppx: sq heparin being given, pt has been refusing alps, ambulation recommended -Incentive spirometry encouraged -Will discuss with Dr. Larios Core Measures/Miscellaneous Venous Thromboembolism VTE Risk Factors: Surgery VTE Contraindications: No Contraindications VTE Diagnosis: No VTE Type: NONE VTE Confirmed by (Test): NONE Beta Camila Is Beta Camila a Home Med? No Antibiotics Is Patient on Antibiotics? Yes
[2016-07-25 14:13] VITALS: BP 130/86
[2016-07-25 22:33] VITALS: BP 128/70
[2016-07-26 06:19] VITALS: BP 140/84
[2016-07-26 07:44] LABS: ABSOLUTE BASOPHIL COUNT 0.1 /CUMM (0.0-0.2); ABSOLUTE EOSINOPHIL COUNT 0.7 /CUMM (0.0-0.7); ABSOLUTE GRANULOCYTE CT 9.7 /CUMM (1.4-6.5); ABSOLUTE LYMPH COUNT 2.4 /CUMM (1.2-3.4); ABSOLUTE MONOCYTE COUNT 1.2 /CUMM (0.10-0.60); BASOPHIL % 0.5 % (0.0-2.0); GRANULOCYTE % 68.8 % (42.2-75.2); HEMATOCRIT 31.6 % (37-47); MEAN CORPUSCULAR HGB CONC 33.8 G/DL (33.0-37.0); MEAN CORPUSCULAR VOLUME 88.8 FL (81.0-99.0); MEAN PLATELET VOLUME 7.3 FL (7.4-10.4); PLATELET COUNT 345 /CUMM (130-400); RBC DISTRIBUTION WIDTH 14.5 % (11.5-14.5); RED BLOOD CELL CT 3.56 /CUMM (4.20-5.40); WHITE BLOOD CELL COUNT 14.1 /CUMM (4.8-10.8)
--- NOTE | 2016-07-26 11:49 | PN- General Surgery ---
See Addendum Subjective Subjective: No acute overnight events reported. Patient tolerating clear liquid diet, but states that she does not have an appetite. Denies nausea and vomitting. Denies chest pain, shortness of breath and difficulty breathing. Is having pain in incisional area. Is voiding, has stool in colostomy bag. Objective Vital Signs and I&Os Vital Signs Date Time Temp Pulse Resp B/P B/P Pulse O2 O2 Flow FiO2 Mean Ox Delivery Rate 07/26 0619 98.1 83 20 140/84 96 Room Air 07/25 2233 98.1 90 20 128/70 97 Room Air 07/25 1413 97.5 99 20 130/86 96 Intake & Output 07/26 1600 07/26 0800 07/26 0000 07/25 1600 07/25 0800 07/25 0000 Intake Total 890 1200 1180 1600 Output Total 200 Balance 890 1000 1180 1600 Intake, IV 650 082 539 7885 Intake, Oral 240 600 480 Output, Stool 200 Physical Exam: General: AAO x3, no acute distress Cardiac; RRR, s1s2 Pulm: CTA bialterally Abd: Non-distended, juliet-incisional tenderness, formed soft stool in colostomy, stoma viable/ patent Extremities: moves all extremities, distal sensation intact. Skin warm and well perfused. DP pulses palpable. Bilateral calves soft and non-tender. Surgical site: Dressing dry and intact. Packing removed. Clean dressing reapplied. Assessment/Plan Assessment/Plan This is a 36 year old female, POD 5 s/p hartmanns, doing well -Continue to follow WBC, was 14.1 today -Advance diet to regular -DC iv fluids -Discussed with Dr. Larios Core Measures/Miscellaneous Venous Thromboembolism VTE Risk Factors: Surgery VTE Contraindications: No Contraindications VTE Diagnosis: No VTE Type: NONE VTE Confirmed by (Test): NONE Beta Camila Is Beta Camila a Home Med? No Antibiotics Is Patient on Antibiotics? Yes
[2016-07-26 14:52] VITALS: BP 140/90
[2016-07-26 21:33] VITALS: BP 120/70
[2016-07-27 06:34] VITALS: BP 140/82
--- NOTE | 2016-07-27 07:33 | PN- General Surgery ---
See Addendum Subjective Subjective: No acute overnight events reported. Patient admits to having difficulty sleeping and is having incisional discomfort but states that it is tolerable. No nausea, vomitting, hiccuping or belching. No difficulty voiding, is making stool/air in colostomy bag. No chest pain, shortness of breath or difficulty breathing. Objective Vital Signs and I&Os Vital Signs Date Time Temp Pulse Resp B/P B/P Pulse O2 O2 Flow FiO2 Mean Ox Delivery Rate 07/27 0634 99.0 99 20 140/82 94 Room Air 07/26 2133 98.2 77 20 120/70 99 / 1452 98.0 94 20 140/90 95 Intake & Output 07/27 0800 07/27 0000 07/26 1600 07/26 0800 07/26 0000 07/25 1600 Intake Total 580 734 873 1449 1180 Output Total 200 300 200 Balance 380 886 327 9145 1180 Intake, IV 100 375 650 600 700 Intake, Oral 480 240 240 600 480 Output, Stool 200 300 200 Physical Exam: General: Alert and oriented x3, no acute distress Cardiac: RRR, s1s2 Pulm: CTA bilaterally, incentive spirometer between 750-1000 Abdomen: Non-distended, juliet-incisional tenderness. Normo-active bowel sounds auscultated and air and stool present in colostomy bag. Stoma pink, viable, and patent. Dressing with two dime sized spots of serous drainage in area where packing removed one day ago. No purulence noted. No surrounding erythema. Extremities: Moves all extremities, distal sensation intact. Motor in tact. Skin warm and well perfused. Calves soft and non-tender bialterally. Assessment/Plan Assessment/Plan This is a 36 year old female, POD 6, s/p Hartmanns. WBC remaining slightly elevated without shift. Temperature remained between 98.0-99.0 over the past 24 hours. Began regular diet yesterday, tolerated red meat thus far. -Continue regular diet -Continue OOB -Continue incentive spirometry, 10 inhalations per hour recommended -Follow up wbc count today -Daily dry dressing changes -Wean off of IV pain medication, d/c 4 mg iv morphine, add 2 mg iv for breakthrough only -Will d/w Dr. Larios Core Measures/Miscellaneous Venous Thromboembolism VTE Risk Factors: Surgery VTE Contraindications: No Contraindications VTE Diagnosis: No VTE Type: NONE VTE Confirmed by (Test): NONE Beta Camila Is Beta Camila a Home Med? No Antibiotics Is Patient on Antibiotics? Yes
[2016-07-27 08:22] LABS: ABSOLUTE BASOPHIL COUNT 0 /CUMM (0.0-0.2); ABSOLUTE EOSINOPHIL COUNT 0.5 /CUMM (0.0-0.7); ABSOLUTE GRANULOCYTE CT 13.8 /CUMM (1.4-6.5); ABSOLUTE LYMPH COUNT 3.5 /CUMM (1.2-3.4); ABSOLUTE MONOCYTE COUNT 1.3 /CUMM (0.10-0.60); BASOPHIL % 0.2 % (0.0-2.0); EOSINOPHIL % 2.8 % (0-5); GRANULOCYTE % 72.1 % (42.2-75.2); HEMATOCRIT 33.2 % (37-47); MEAN CORPUSCULAR HGB 29.9 PG (27.0-31.0); MEAN CORPUSCULAR HGB CONC 33.6 G/DL (33.0-37.0); MEAN CORPUSCULAR VOLUME 88.8 FL (81.0-99.0); MEAN PLATELET VOLUME 7.3 FL (7.4-10.4); PLATELET COUNT 407 /CUMM (130-400); RBC DISTRIBUTION WIDTH 14.2 % (11.5-14.5); RED BLOOD CELL CT 3.74 /CUMM (4.20-5.40); WHITE BLOOD CELL COUNT 19.1 /CUMM (4.8-10.8)
[2016-07-27 14:52] VITALS: BP 120/80
[2016-07-27 14:55] VITALS: BP 110/50
[2016-07-27 22:26] VITALS: BP 124/60
[2016-07-28 06:31] VITALS: BP 140/82
[2016-07-28 08:32] LABS: ABSOLUTE BASOPHIL COUNT 0.1 /CUMM (0.0-0.2); ABSOLUTE EOSINOPHIL COUNT 0.5 /CUMM (0.0-0.7); ABSOLUTE GRANULOCYTE CT 13.2 /CUMM (1.4-6.5); ABSOLUTE LYMPH COUNT 3.2 /CUMM (1.2-3.4); BASOPHIL % 0.4 % (0.0-2.0); EOSINOPHIL % 2.8 % (0-5); GRANULOCYTE % 73.5 % (42.2-75.2); HEMATOCRIT 33.1 % (37-47); MEAN CORPUSCULAR HGB 30.2 PG (27.0-31.0); MEAN CORPUSCULAR HGB CONC 34.2 G/DL (33.0-37.0); MEAN CORPUSCULAR VOLUME 88.3 FL (81.0-99.0); MEAN PLATELET VOLUME 7.7 FL (7.4-10.4); PLATELET COUNT 440 /CUMM (130-400); RBC DISTRIBUTION WIDTH 14.6 % (11.5-14.5); RED BLOOD CELL CT 3.74 /CUMM (4.20-5.40); WHITE BLOOD CELL COUNT 17.9 /CUMM (4.8-10.8)
--- NOTE | 2016-07-28 09:31 | PN- General Surgery ---
See Addendum Subjective Subjective: POD#7 S/P LEMUS'S NO MAJOR ISSUES OVERNIGHT PAIN CONTROL ISSUES(H/O CHRONIC PAIN MANAGEMENT) WBC TRENDING DOWN LOW GRADE TEMPS TOLERATING REGULAR DIET Objective Vital Signs and I&Os Vital Signs Date Time Temp Pulse Resp B/P B/P Pulse O2 O2 Flow FiO2 Mean Ox Delivery Rate / 0631 99.1 96 16 140/82 93 Room Air / 2226 99.0 86 20 124/60 93 Room Air 07/27 1455 98.2 77 20 110/50 98 /08 1452 98.2 98 20 120/80 98 Intake & Output / 1600 / 0800 / 0000 / 1600 / 0800 / 0000 Intake Total 480 300 580 Output Total 150 200 200 Balance 330 100 380 Intake, IV 60 100 Intake, Oral 480 240 480 Output, Stool 150 200 200 Physical Exam: CV: RRR LUNGS: CLEAR ABD: SOFTLY DISTENDED DIFFUSELY TENDER TO PALP WOUND C/D/I STOMA VIABLE LQUID STOOL IN BAG, SMALL AMOUNT OF GAS EXT: NO EDEMA, NO CALF TENDERNESS Assessment/Plan Assessment/Plan SURGICALLY IMPROVING PLAN TITRATE PAIN MEDS CONT IV ABX OOB/AMBULATE D/C PLANNING PER ATTENDING Core Measures/Miscellaneous Venous Thromboembolism VTE Risk Factors: Surgery VTE Contraindications: No Contraindications VTE Diagnosis: No VTE Type: NONE VTE Confirmed by (Test): NONE Beta Camila Is Beta Camila a Home Med? No Antibiotics Is Patient on Antibiotics? Yes
[2016-07-28 14:40] VITALS: BP 120/70
--- NOTE | 2016-07-28 14:54 | NUR ---
SHIFT NOTE: PT A/V/OX3. DRESSING TO ABDOMEN CHANGED. MID ABD WOUND APPROXIMATED WITH YG. SCANT DRAINAGE TO DRESSING. + BS. ABDOMEN SOFT. COLOSTOMY WITH LIQUID BROWN OUTPUT; 250 ML. SURG PA MONALISA NOTIFIED PT DRINKING BUT EATING ONLY MINIMALLY. PT REPORTS PAIN 6-10/10 THROUGHOUT THE DAY. AMBULATING AROUND ROOM WITH STEADY GAIT.
[2016-07-28 22:42] VITALS: BP 110/70
[2016-07-29 07:42] VITALS: BP 124/80
[2016-07-29 09:09] LABS: ABSOLUTE BASOPHIL COUNT 0.1 /CUMM (0.0-0.2); ABSOLUTE EOSINOPHIL COUNT 0.6 /CUMM (0.0-0.7); ABSOLUTE GRANULOCYTE CT 14.9 /CUMM (1.4-6.5); ABSOLUTE MONOCYTE COUNT 0.9 /CUMM (0.10-0.60); BASOPHIL % 0.3 % (0.0-2.0); EOSINOPHIL % 2.9 % (0-5); GRANULOCYTE % 76.6 % (42.2-75.2); HEMATOCRIT 35.2 % (37-47); MEAN CORPUSCULAR HGB 29.8 PG (27.0-31.0); MEAN CORPUSCULAR HGB CONC 33.7 G/DL (33.0-37.0); MEAN CORPUSCULAR VOLUME 88.4 FL (81.0-99.0); MEAN PLATELET VOLUME 7.2 FL (7.4-10.4); PLATELET COUNT 566 /CUMM (130-400); RBC DISTRIBUTION WIDTH 14.8 % (11.5-14.5); RED BLOOD CELL CT 3.98 /CUMM (4.20-5.40); WHITE BLOOD CELL COUNT 19.4 /CUMM (4.8-10.8)
--- NOTE | 2016-07-29 10:33 | NUR ---
1000- SURG PA MONALISA AWARE OF PT WBC INCREASED FROM YESTERDAY TO 19.4. PATIENT'S HR 96, AFEBRILE. SURG PA TO SPEAK TO DR. LEHMAN C/F DR. WILLARD REGARDING ABOVE.
--- NOTE | 2016-07-29 11:21 | PN- General Surgery ---
See Addendum Subjective Subjective: pod#8 s/p hernández's for perforation no major issues overnight deneis cp, sob, no n+v with diet denies chills or night sweats Objective Vital Signs and I&Os Vital Signs Date Time Temp Pulse Resp B/P B/P Pulse O2 O2 Flow FiO2 Mean Ox Delivery Rate / 0742 98.1 96 20 124/80 96 Room Air / 2242 99.6 103 20 110/70 95 Room Air / 1440 98.0 60 20 120/70 96 Room Air Intake & Output / 1600 07/29 0800 / 0000 / 1600 07/28 0800 07/28 0000 Intake Total 390 240 750 480 Output Total 25 50 700 150 Balance 365 190 50 330 Intake, IV 150 150 Intake, Oral 240 240 600 480 Output, Stool 25 50 250 150 Output, Urine 450 Physical Exam: cv: rrr lungs: clear abd: juliet incisional tenderness no wound drainage or cellulitis stoma viable with liquid brown stool in ostomy ext: no calf tenderness distal cms intact Assessment/Plan Assessment/Plan increased wbc however low po intake tachycardia but has been previous afebrile plan stat bep cont iv abx ct scan abd/pelvis with po/iv contrast to r/o abdominal collection Core Measures/Miscellaneous Venous Thromboembolism VTE Risk Factors: Surgery VTE Contraindications: No Contraindications VTE Diagnosis: No VTE Type: NONE VTE Confirmed by (Test): NONE Beta Camila Is Beta Camila a Home Med? No Antibiotics Is Patient on Antibiotics? Yes
[2016-07-29 13:24] VITALS: BP 132/84
[2016-07-29 14:01] VITALS: BP 120/68
--- NOTE | 2016-07-29 15:17 | NUR ---
1200- SURG NORM SHELDON NOTIFIED PT PAIN CONTINUES TO BE 8/10 TO ABDOMEN IN SPITE OF PAIN MEDS. PAIN LEVEL NOT DECREASING WITH PAIN MEDS INCLUDING IV MORPHINE. VSS BUT CONTINUES TO BE TACHY. DR. LEHMAN TO BE COMING IN TO ASSESS PT. CT ABDOMEN TO BE ORDERED.
--- NOTE | 2016-07-29 16:19 | NUR ---
1600- PT LEFT FLOOR VIA STRETCHER FOR CT SCAN.
--- NOTE | 2016-07-29 16:28 | NUR ---
1625- PT RETURNED TO FLOOR VIA STRETCHER FROM CT SCAN.
--- NOTE | 2016-07-29 16:54 | CT SCAN REPORT ---
EXAMINATION: CT ABDOMEN AND PELVIS WITH CONTRAST CLINICAL INFORMATION: 36-year-old female status post Marcus procedure for bowel perforation. Elevated WBC level. Evaluate for abdominal collection. COMPARISON: CT of abdomen pelvis, 07/21/2016 TECHNIQUE: Multidetector volumetric imaging was performed of the abdomen and pelvis before and after the IV administration of 95 mL of Optiray 320 intravenous contrast and 900 mL of oral water intermixed with 30 mL of Gastroview contrast. Sagittal and coronal reformatted images were obtained on the technologist's workstation. DLP: 282 mGy-cm FINDINGS: LUNG BASES: Atelectasis within lung bases has decreased compared to 07/21/2016. LIVER, GALLBLADDER, AND BILIARY TREE: Liver has normal size, contour and attenuation. No hepatic abscess or intrahepatic bile duct dilatation. Gallbladder is unremarkable. PANCREAS: Unremarkable. SPLEEN: Unremarkable. ADRENAL GLANDS: Unremarkable. KIDNEYS AND URETERS: Multiple bilateral renal calculi, largest on the left measuring 0.5 cm in maximum AP dimension. Cortical thinning/scarring at the upper pole of the left kidney. Also, there is a linear area of decreased attenuation, suggestive of scarring, in the upper pole of the right kidney. Persistent finding of mild bilateral pelviectasis, possibly related to lack of normal ureteral peristalsis due to the inflammatory changes in the abdomen/pelvis. BLADDER: Unremarkable. GASTROINTESTINAL TRACT: Stomach is unremarkable. Bowel loops are normal in caliber. The small bowel wall thickening and mucosal hyperenhancement have markedly improved compared to 07/21/2016. However, there is some residual small bowel wall thickening within the pelvis. Garza's pouch is seen within the pelvis. The descending colostomy extends through the left lower abdominal wall. PERITONEAL CAVITY/MESENTERY: There is persistent edema/haziness and vascular congestion of the mesentery, although this has improved. Within the left pelvis inferior to the site of the colostomy, there is a small amount of fluid located deep to the abdominal wall and overlying the left psoas muscle in an area of measuring approximately 2.4 cm transverse and 6 cm AP (image 64, series 2), and there is hyperenhancement of the peritoneum in this area. The volume of free fluid in the cul-de-sac has decreased compared to 07/21/2016. LYMPH NODES: The retroperitoneal lymph nodes are within the normal size range. No iliac or inguinal lymphadenopathy. VASCULAR: Unremarkable. PELVIC VISCERA: The anteflexed uterus is normal. No adnexal mass. OSSEOUS STRUCTURES: Unremarkable. IMPRESSION: 1. Interval improvement in the imaging findings of enterocolitis that were observed on 07/21/2016. There is some residual bowel wall thickening within the pelvis. There is interval increased fluid in the left pelvis inferior to the site of colostomy with enhancement of the peritoneal lining in this area, suggestive of peritonitis. Also, there is a small amount of residual peripherally enhancing fluid within the lower pelvis and cul-de-sac, but this cul-de-sac fluid has decreased in volume compared to 07/21/2016. 2. Bilateral nephrolithiasis with persistent mild bilateral pelviectasis.
--- NOTE | 2016-07-29 18:22 | NUR ---
18:20- PT PAIN CONTINUES 09/28 WITH ALL AVAILABLE PAIN MEDS GIVEN. PT ALSO REQUESTING RESULTS OF CT SCAN. SPOKE TO SURG NORM SHELDON, WHO SAID DR. LEHMAN DOES NOT WANT PAIN MEDICATIONS INCREASED. SURG NORM SHELDON TO COME TO FLOOR TO TALK TO PT ABOUT CT SCAN RESULTS.
[2016-07-29 22:07] VITALS: BP 134/80
[2016-07-30 06:39] VITALS: BP 112/80
[2016-07-30 08:39] LABS: ABSOLUTE BASOPHIL COUNT 0 /CUMM (0.0-0.2); ABSOLUTE EOSINOPHIL COUNT 0.6 /CUMM (0.0-0.7); ABSOLUTE GRANULOCYTE CT 10.8 /CUMM (1.4-6.5); ABSOLUTE LYMPH COUNT 2.2 /CUMM (1.2-3.4); ABSOLUTE MONOCYTE COUNT 0.9 /CUMM (0.10-0.60); BASOPHIL % 0.3 % (0.0-2.0); EOSINOPHIL % 4.2 % (0-5); GRANULOCYTE % 74.4 % (42.2-75.2); HEMATOCRIT 36.5 % (37-47); MEAN CORPUSCULAR HGB 29.3 PG (27.0-31.0); MEAN CORPUSCULAR HGB CONC 32.7 G/DL (33.0-37.0); MEAN CORPUSCULAR VOLUME 89.5 FL (81.0-99.0); MEAN PLATELET VOLUME 7.7 FL (7.4-10.4); PLATELET COUNT 597 /CUMM (130-400); RBC DISTRIBUTION WIDTH 14.4 % (11.5-14.5); RED BLOOD CELL CT 4.07 /CUMM (4.20-5.40); WHITE BLOOD CELL COUNT 14.6 /CUMM (4.8-10.8)
--- NOTE | 2016-07-30 09:21 | NUR ---
08:45- PT SHOWERED. COLOSTOMY WAFER AND APPLIANCE CHANGED. PROVIDED PT EDUCATION REGARDING COLOSTOMY CARE AND WAFER/APPLIANCE CHANGE. PT VERBALIZED UNDERSTANDING, ASKED APPROPRIATE QUESTIONS AND PARTICIPATED IN WAFER/APPLIANCE CHANGE. STOMA DARK PINK WITH OUTPUT OF BROWN LIQUID STOOL.
--- NOTE | 2016-07-30 09:35 | PN- General Surgery ---
See Addendum Subjective Subjective: +abdominal pain and R ankle pain. No n/v. +stool via ostomy. OOB per patient Objective Vital Signs and I&Os Vital Signs Date Time Temp Pulse Resp B/P B/P Pulse O2 O2 Flow FiO2 Mean Ox Delivery Rate 07/30 0639 98.6 95 20 112/80 93 Room Air 07/29 2207 98.2 100 20 134/80 96 07/29 1401 98.1 77 20 120/68 96 07/29 1324 97.7 97 18 132/84 97 Room Air Intake & Output 07/30 1600 07/30 0800 07/30 0000 07/29 1600 07/29 0800 07/29 0000 Intake Total 610 510 600 390 240 Output Total 200 300 550 25 50 Balance 410 210 50 365 190 Intake, IV 250 150 150 Intake, Oral 360 360 600 240 240 Output, Stool 200 300 50 25 50 Output, Urine 500 Physical Exam: GEN: NAD Card: s1s2 RRR pulm: no audible wheeze abd: ostomy bag empty and dressing cdi (just changed by RN), stome pink, ttp throughout ext: calves soft nt bl Current Medications: Current Medications Sig/Tom Start time Last Medication Dose Route Stop Time Status Admin Acetaminophen 1,000 MG Q6H 07/29 1930 AC 07/30 N/A 1 UNIT IV 07/30 1344 0709 Ceftriaxone Sodium 1,000 MG DAILY 07/22 1000 AC 07/29 IV 0947 Diphenhydramine HCl 50 MG Q4P PRN 07/22 0830 AC 07/22 IV 0822 Heparin Sodium 5,000 UNIT Q8 07/22 0600 AC 07/30 (Porcine) SC 0527 Ketorolac 30 MG Q6 07/25 1200 AC 07/30 Tromethamine IV 0527 Levalbuterol 2 PUFF Q4P PRN 07/22 2130 AC 07/25 INH 0404 Melatonin 10 MG AT BEDTIME 07/27 2200 AC 07/29 PO 2210 Metronidazole 500 MG IQ8 07/22 0000 AC 07/30 N/A 1 UNIT IV 0856 Morphine Sulfate 15 MG Q4 HRS NEEDED PRN 07/28 0945 AC 07/30 PO 0526 Morphine Sulfate 2 MG Q4P PRN 07/27 0745 AC 07/30 IV 0110 Nicotine 21 MG DAILY 07/29 1000 AC 07/29 TOP 1127 Ondansetron HCl 4 MG Q6P PRN 07/21 2245 AC IV Sodium Chloride 1,000 ML BOLUS ONE 07/29 1345 DC 07/29 IV 07/29 1444 1357 Zolpidem Tartrate 5 MG AT BEDTIME NEED.. 07/25 2115 AC 07/30 PO 0217 Results Last 48 Hours of Labs: Laboratory Tests 07/30 07/29 0705 1212 Chemistry Sodium (137 - 145 mmol/L) 138 138 Potassium (3.5 - 5.1 mmol/L) 4.2 3.8 Chloride (98 - 107 mmol/L) 100 101 Carbon Dioxide (22 - 30 mmol/L) 27 25 Anion Gap (5 - 16) 11 11 BUN (7 - 17 mg/dL) 8 8 Creatinine (0.5 - 1.0 mg/dL) 0.5 0.5 Estimated GFR (>60 ml/min) > 60 > 60 BUN/Creatinine Ratio (7 - 25 %) 16.0 16.0 Phosphorus (2.5 - 4.5 mg/dL) 3.7 Magnesium (1.6 - 2.3 mg/dL) 1.6 Hematology CBC w Diff NO MAN DIFF REQ WBC (4.8 - 10.8 /CUMM) 14.6 H RBC (4.20 - 5.40 /CUMM) 4.07 L Hgb (12.0 - 16.0 G/DL) 11.9 L Hct (37 - 47 %) 36.5 L MCV (81.0 - 99.0 FL) 89.5 MCH (27.0 - 31.0 PG) 29.3 RDW (11.5 - 14.5 %) 14.4 Plt Count (130 - 400 /CUMM) 597 H MPV (7.4 - 10.4 FL) 7.7 Gran % (42.2 - 75.2 %) 74.4 Lymphocytes % (20.5 - 51.1 %) 14.8 L Monocytes % (1.7 - 9.3 %) 6.3 Eosinophils % (0 - 5 %) 4.2 Basophils % (0.0 - 2.0 %) 0.3 Absolute Granulocytes (1.4 - 6.5 /CUMM) 10.8 H Absolute Lymphocytes (1.2 - 3.4 /CUMM) 2.2 Absolute Monocytes (0.10 - 0.60 /CUMM) 0.9 H Absolute Eosinophils (0.0 - 0.7 /CUMM) 0.6 Absolute Basophils (0.0 - 0.2 /CUMM) 0 PUBS MCHC (33.0 - 37.0 G/DL) 32.7 L 06 0900 Hematology CBC w Diff MAN DIFF ORDERED WBC (4.8 - 10.8 /CUMM) 19.4 H RBC (4.20 - 5.40 /CUMM) 3.98 L Hgb (12.0 - 16.0 G/DL) 11.9 L Hct (37 - 47 %) 35.2 L MCV (81.0 - 99.0 FL) 88.4 MCH (27.0 - 31.0 PG) 29.8 RDW (11.5 - 14.5 %) 14.8 H Plt Count (130 - 400 /CUMM) 566 H MPV (7.4 - 10.4 FL) 7.2 L Gran % (42.2 - 75.2 %) 76.6 H Lymphocytes % (20.5 - 51.1 %) 15.4 L Monocytes % (1.7 - 9.3 %) 4.8 Eosinophils % (0 - 5 %) 2.9 Basophils % (0.0 - 2.0 %) 0.3 Absolute Granulocytes (1.4 - 6.5 /CUMM) 14.9 H Segmented Neutrophils (42.2 - 75.2 %) 75 Band Neutrophils (0.0 - 5.0 %) 4 Absolute Lymphocytes (1.2 - 3.4 /CUMM) 3.0 Lymphocytes (20.5 - 51.1 %) 17 L Monocytes (1.7 - 9.3 %) 4 Absolute Monocytes (0.10 - 0.60 /CUMM) 0.9 H Absolute Eosinophils (0.0 - 0.7 /CUMM) 0.6 Absolute Basophils (0.0 - 0.2 /CUMM) 0.1 Platelet Estimate (ADEQUATE) VERIFIED BY SMEAR Anisocytosis 1+ PUBS MCHC (33.0 - 37.0 G/DL) 33.7 Recent Imaging Studies: CT abd pelvis 07/29/16: 1. Interval improvement in the imaging findings of enterocolitis that were observed on 07/21/2016. There is some residual bowel wall thickening within the pelvis. There is interval increased fluid in the left pelvis inferior to the site of colostomy with enhancement of the peritoneal lining in this area, suggestive of peritonitis. Also, there is a small amount of residual peripherally enhancing fluid within the lower pelvis and cul-de-sac, but this cul-de-sac fluid has decreased in volume compared to 07/21/2016. 2. Bilateral nephrolithiasis with persistent mild bilateral pelviectasis. Assessment/Plan Assessment/Plan A: POD9 sp hartmanns, with improved leukocytosis today, +ostomy fxn, persistent abdomial pain, stable. P: change to PO pain meds reg diet abx- length? will dw attending Core Measures/Miscellaneous Venous Thromboembolism VTE Risk Factors: Surgery VTE Contraindications: No Contraindications VTE Diagnosis: No VTE Type: NONE VTE Confirmed by (Test): NONE Beta Camila Is Beta Camila a Home Med? No Antibiotics Is Patient on Antibiotics? Yes
[2016-07-30 22:51] VITALS: BP 122/80
[2016-07-31 06:41] VITALS: BP 148/80
--- NOTE | 2016-07-31 07:32 | PN- General Surgery ---
Subjective Subjective: tolerating reg diet. no n/v. chronic r ankle and back pain. _+stool and gs in ostomy. +abd pain controlled with po meds. +oob in chair this am. feels ready to dc home Objective Vital Signs and I&Os Vital Signs Date Time Temp Pulse Resp B/P B/P Pulse O2 O2 Flow FiO2 Mean Ox Delivery Rate 07/31 0641 98.9 100 16 148/80 97 Room Air 07/30 2251 99.2 95 20 122/80 94 Room Air Intake & Output 07/31 0800 07/31 0000 07/30 1600 07/30 0800 07/30 0000 07/29 1600 Intake Total 390 510 720 610 510 600 Output Total 100 800 200 300 550 Balance 290 510 -80 410 210 50 Intake, IV 150 150 250 150 Intake, Oral 240 360 720 360 360 600 Output, Stool 100 200 200 300 50 Output, Urine 600 500 Physical Exam: GEN: NAD Card: s1s2 RRR pulm: CTAB abd: soft, nd, mildly ttp throughout, stoma pink, liquid stool and gas in bag, minimal serosang drige from 2 open areas of incision, staple line otherwise CDI ext: calves soft nt bl, r ankle tendernes Assessment/Plan Assessment/Plan A: 36F POD10 sp ling's for perf'ed diverticulitis, pain controlled w pain meds, ostomy functioning, stable. P: continue abx pain meds prn oob, ambulate, hep sq cbc pdg dc planning Core Measures/Miscellaneous Venous Thromboembolism VTE Risk Factors: Surgery VTE Contraindications: No Contraindications VTE Diagnosis: No VTE Type: NONE VTE Confirmed by (Test): NONE Beta Camila Is Beta Camila a Home Med? No Antibiotics Is Patient on Antibiotics? Yes
[2016-07-31] MEDS ORDERED: CIPRO500 M1 PO (07:41)
[2016-07-31] MEDS ORDERED: FLAGYL500 MG PO (07:41)
[2016-07-31] MEDS ORDERED: MORPHINE SULFAT15 M4 PO (07:41)
--- NOTE | 2016-07-31 07:47 | Patient Discharge Instructions ---
Discharge Instructions General Discharge Information You were seen/treated for: Perforated sigmoid colon You had these procedures: Garza's procedure (sigmoid colon resection with colostomy formation) Watch for these problems: fever >101, chills, redness/drainage/foul smell from wound, decrease of stool in ostomy, worsening uncontrolld abdominal pain, nausea, vomiting, inability to tolerated food/drink Do not soak the wound: Yes No bath, but you may shower: Yes Other wound care: Dry gauze dressing to midline wound as needed. Ostomy care, empty and change bag as needed Diet Continue normal diet: Yes Recommended Diet: Regular Activity Activity Self Limited: Yes Other activity limits: Activity as tolerated. Acute Coronary Syndrome Inclusion Criteria At DC or during hospital stay patient has or had the following: ACS DIAGNOSIS No Discharge Core Measures Meds if any: Prescribed or Continued at Discharge Meds if any: NOT Prescribed or Continued at Discharge Congestive Heart Failure Inclusion Criteria At DC or during hospital stay patient has or had the following: CHF DIAGNOSIS No Discharge Core Measures Meds if any: Prescribed or Continued at Discharge Meds if any: NOT Prescribed or Continued at Discharge Cerebrovascular accident Inclusion Criteria At DC or during hospital stay patient has or had the following: CVA/TIA Diagnosis No Discharge Core Measures Meds if any: Prescribed or Continued at Discharge Meds if any: NOT Prescribed or Continued at Discharge Venous thromboembolism Inclusion Criteria VTE Diagnosis No VTE Type NONE VTE Confirmed by (Test) NONE Discharge Core Measures - Per Current guidelines, there needs to be overlap - treatment for the first 5 days of Warfarin therapy. - If discharged on Warfarin prior to 5 days of - overlap therapy, the patient will need to be - assessed for post discharge needs including - *Post discharge parental anticoagulation - *Warfarin and/or parental anticoagulation education - *Follow up date to check INR post discharge At least 5 days overlap therapy as Inpatient No Meds if any: Prescribed or Continued at Discharge Note: Overlap Therapy is Warfarin and Anticoagulant Meds if any: NOT Prescribed or Continued at Discharge
[2016-07-31 08:43] LABS: ABSOLUTE BASOPHIL COUNT 0 /CUMM (0.0-0.2); ABSOLUTE EOSINOPHIL COUNT 0.2 /CUMM (0.0-0.7); ABSOLUTE LYMPH COUNT 3.4 /CUMM (1.2-3.4); BASOPHIL % 0 % (0.0-2.0); EOSINOPHIL % 0.9 % (0-5); GRANULOCYTE % 75.4 % (42.2-75.2); HEMATOCRIT 35.9 % (37-47); MEAN CORPUSCULAR HGB 29.3 PG (27.0-31.0); MEAN CORPUSCULAR HGB CONC 33.1 G/DL (33.0-37.0); MEAN CORPUSCULAR VOLUME 88.5 FL (81.0-99.0); MEAN PLATELET VOLUME 7.8 FL (7.4-10.4); PLATELET COUNT 713 /CUMM (130-400); RBC DISTRIBUTION WIDTH 14.7 % (11.5-14.5); RED BLOOD CELL CT 4.05 /CUMM (4.20-5.40); WHITE BLOOD CELL COUNT 18.6 /CUMM (4.8-10.8)
[2016-07-31 14:59] VITALS: BP 130/88
[2016-07-31 23:09] VITALS: BP 132/80
[2016-08-01 06:16] VITALS: BP 136/70
--- NOTE | 2016-08-01 08:32 | NUR ---
PATIENT LEFT FLOOR TO GO OUTSIDE, SECURITY CALLED AND RETURNED PATIENT TO ROOM, IN TO SPEAK WITH PATIENT AND HER MOTHER TO REITERATE THAT SHE MAY NOT LEAVE THE UNIT. PATIENT FUSTRATED WITH HOW LONG SHE HAS BEEN IN THE HOSPITAL AND FEELS SHE IS RREADY TO GO. PATIENT WISHES TO LEAVE TODAY WHETHER CLEARED OR NOT. DISCUSSED WITH PATIENT THAT I WOULD NOTIFY THE SURGICAL PA AND LET THEM KNOW. PATIENT IS AGREEABLE TO WAIT FOR PA TO ROUND AND SEE IF SHE CAN BE MEDICALLY CLEARED PRIOR TO SIGNING OUT AMA. NORM TOBIN IS AWARE AND STATES A PA WILL SPEAK WITH PATIENT WHEN ROUNDING. PATIENT COMFORTABLE WITH PLAN.
[2016-08-01 08:39] LABS: ABSOLUTE BASOPHIL COUNT 0.1 /CUMM (0.0-0.2); ABSOLUTE EOSINOPHIL COUNT 0.4 /CUMM (0.0-0.7); BASOPHIL % 0.5 % (0.0-2.0); EOSINOPHIL % 2.8 % (0-5); GRANULOCYTE % 68.8 % (42.2-75.2); HEMATOCRIT 36.2 % (37-47); MEAN CORPUSCULAR HGB 29.2 PG (27.0-31.0); MEAN CORPUSCULAR HGB CONC 33.2 G/DL (33.0-37.0); MEAN PLATELET VOLUME 8.1 FL (7.4-10.4); PLATELET COUNT 761 /CUMM (130-400); RBC DISTRIBUTION WIDTH 14.6 % (11.5-14.5); RED BLOOD CELL CT 4.12 /CUMM (4.20-5.40); WHITE BLOOD CELL COUNT 14.5 /CUMM (4.8-10.8)
--- NOTE | 2016-08-01 08:54 | PN- General Surgery ---
Subjective Subjective: Reports wanting to leave. She does not want to stay any longer. Reports tolerating diet. Interested in home services for colostomy care. Reports pain improves with ms contin. Objective Vital Signs and I&Os Vital Signs Date Time Temp Pulse Resp B/P B/P Pulse O2 O2 Flow FiO2 Mean Ox Delivery Rate 08/01 0616 98.6 98 18 136/70 96 Room Air 07/31 2309 98.3 80 20 132/80 94 Room Air 07/31 1459 98.1 100 18 130/88 98 Intake & Output 08/01 1600 08/01 0800 08/01 0000 07/31 1600 07/31 0800 07/31 0000 Intake Total 450 700 390 510 Output Total 120 200 100 Balance 330 500 290 510 Intake, IV 100 150 150 Intake, Oral 450 600 240 360 Output, Stool 120 200 100 Physical Exam: General - alert & oriented x 3. comfortable. no acute distress. Lungs - clear bilaterally. no w/r/r. Cardiac - s1s2. reg. Abdomen - soft. midline dressing changed. incision approximated with mica. no erythema or exudates. stoma moist & pink, with stool in bag. Extremities - warm bilaterally. no c/c/e. calves soft and nontender b/l. Current Medications: Current Medications Sig/Tom Start time Last Medication Dose Route Stop Time Status Admin Ceftriaxone Sodium 1,000 MG DAILY 07/22 1000 AC 08/01 IV 0818 Diphenhydramine HCl 50 MG Q4P PRN 07/22 0830 AC 07/22 IV 0822 Heparin Sodium 5,000 UNIT Q8 07/22 0600 AC 08/01 (Porcine) SC 0547 Ketorolac 30 MG Q6 07/25 1200 AC 08/01 Tromethamine IV 0547 Levalbuterol 2 PUFF Q4P PRN 07/22 2130 AC 07/25 INH 0404 Melatonin 10 MG AT BEDTIME 07/27 2200 AC 07/31 PO 2038 Metronidazole 500 MG IQ8 07/22 0000 AC 08/01 N/A 1 UNIT IV 0822 Morphine Sulfate 15 MG Q4 HRS NEEDED PRN 07/28 0945 AC 08/01 PO 0816 Nicotine 21 MG DAILY 07/29 1000 AC 07/31 TOP 0941 Ondansetron HCl 4 MG Q6P PRN 07/21 2245 AC IV Zolpidem Tartrate 5 MG AT BEDTIME NEED.. 07/255 AC 07/31 PO 2322 Results Last 48 Hours of Labs: Laboratory Tests 08/01 07/31 0615 0714 Hematology CBC w Diff NO MAN DIFF REQ NO MAN DIFF REQ WBC (4.8 - 10.8 /CUMM) 14.5 H 18.6 H RBC (4.20 - 5.40 /CUMM) 4.12 L 4.05 L Hgb (12.0 - 16.0 G/DL) 12.0 11.9 L Hct (37 - 47 %) 36.2 L 35.9 L MCV (81.0 - 99.0 FL) 88.0 88.5 MCH (27.0 - 31.0 PG) 29.2 29.3 RDW (11.5 - 14.5 %) 14.6 H 14.7 H Plt Count (130 - 400 /CUMM) 761 H 713 H MPV (7.4 - 10.4 FL) 8.1 7.8 Gran % (42.2 - 75.2 %) 68.8 75.4 H Lymphocytes % (20.5 - 51.1 %) 20.8 18.3 L Monocytes % (1.7 - 9.3 %) 7.1 5.4 Eosinophils % (0 - 5 %) 2.8 0.9 Basophils % (0.0 - 2.0 %) 0.5 0 L Absolute Granulocytes (1.4 - 6.5 /CUMM) 10.0 H 14.0 H Absolute Lymphocytes (1.2 - 3.4 /CUMM) 3.0 3.4 Absolute Monocytes (0.10 - 0.60 /CUMM) 1.0 H 1.0 H Absolute Eosinophils (0.0 - 0.7 /CUMM) 0.4 0.2 Absolute Basophils (0.0 - 0.2 /CUMM) 0.1 0 PUBS MCHC (33.0 - 37.0 G/DL) 33.2 33.1 Assessment/Plan Assessment/Plan This 36 year old is POD#11 s/p ling's for perf'ed diverticulitis, with oscillating post-operative leukocytosis without any clear source of ongoing infection, otherwise stable for discharge tolerating regular diet transition from iv to oral antibiotics at discharge f/u labs case management to assess for needs at home re: new colostomy pain controlled with ms IR dressing changed hep sc - dvt ppx d/c planning d/w , to see her this morning Core Measures/Miscellaneous Venous Thromboembolism VTE Risk Factors: Surgery VTE Contraindications: No Contraindications VTE Diagnosis: No VTE Type: NONE VTE Confirmed by (Test): NONE Beta Camila Is Beta Camila a Home Med? No Antibiotics Is Patient on Antibiotics? Yes
[2016-08-01] MEDS ORDERED: CIPRO500 M1 PO (09:17)
[2016-08-01] MEDS ORDERED: FLAGYL500 MG PO (09:17)
[2016-08-01] MEDS ORDERED: MORPHINE SULFAT15 M4 PO (09:17)
--- NOTE | 2016-08-02 10:48 | Discharge Summary ---
Visit Information Visit Dates Admission Date: 07/21/16 Discharge Date: 08/01/16 Hospital Course Course Attending Physician: ADONAY DENISE,MIKEY Doan Primary Care Physician: HANSEL DENISE,[facility] Course: Patient presented to the emergency room with an acute abdomen peritonitis perforated viscus and was urgently promptly taken to the operating room for Garza's procedure postoperatively she did well did not require ICU stay for sepsis she did gradually develop a persistent leukocytosis and thrombocytosis we reimaged her on day 5 it showed some small layering fluid collections some element of colitis but no definite abscess to percutaneously drain at the time so today she is tolerating diet moving her bowels no signs of bleeding she's been afebrile throughout she's been less tachycardic she wants to go home I discussed with to watch for because one of these collections could develop into an abscess but I feel the can manage this on an outpatient basis at this time overall she stable doing well postoperative day 11. Allergies: Coded Allergies: titanium (UNKNOWN 07/21/16) TITANIUM DYE Disposition Summary Disposition Principal Diagnosis: Perforated sigmoid diverticulitis peritonitis acute abdomen Additional Diagnosis: Nonacute otherwise Discharge Disposition: home or self care Discharge Instructions General Discharge Information Code Status: Full Code Patient's Diet: Resume usual avoid constipation Patient's Activity: Avoid heavy lifting Follow-Up Instructions/Appts: Next week for mica or sooner if develops fever pain new pain drainage from wound nausea vomiting Medications at Discharge Discharge Medications: Continue taking these medications: Carisoprodol (SOMA) 350 MG TABLET 2 Tablet ORAL Every 4 hours as needed for PAIN Comments: Last Taken: Time:NOT GIVEN ON THIS ADMISSION Chlorzoxazone (Lorzone) 750 MG TABLET 1 Tablet ORAL 4 TIMES A DAY as needed for PAIN Comments: Last Taken: Time:NOT GIVEN ON THIS ADMISSION Budesonide/Formoterol Fumarate (Symbicort 80-4.5 Mcg Inhaler) (Unknown Strength) HFA.AER.AD Unknown Dose Inhale through mouth TWICE DAILY Comments: Last Taken: Time:not given on this admission Levalbuterol Tartrate (Xopenex Hfa) 45 MCG/ACTUATION HFA.AER.AD 2 Puff Inhale through mouth EVERY 4-6 HOURS NEEDED as needed for ASTHMA Comments: Last Taken:07/25/16 Time:4AM Start taking the following new medications: Morphine Sulfate (Morphine Sulfate) 15 MG TABLET 15 Milligram ORAL EVERY 4 HOURS NEEDED as needed for pain control Qty = 18 No Refills Comments: Last Taken:08/01/16 Time:08:16 AM Metronidazole (Flagyl) 500 MG TABLET 1 Tablet ORAL THREE TIMES DAILY Qty = 12 No Refills Instructions: do not drink alcohol while taking this medication Comments: Last Taken:08/01/16 Time:0800 IV FORM GIVEN Ciprofloxacin HCl (Cipro) 500 MG TABLET 1 Tablet ORAL TWICE DAILY Qty = 8 No Refills Instructions: take with food Comments: Last Taken: Time:NOT GIVEN ON THIS ADMISISON Copies To: ADONAY DENISE,IMKEY Doan
== END 2016-08-01 12:19 | disposition home health service (06) | DRG 330 ==
LOC: ERH 08:25 → ER-OR 09:46 → ERH 09:46 → 2NA 17:41 → PACUH 17:41 → ENRESERV 17:53 → 2NA 19:27
PROVIDERS: Emergency Medicine; Nurse Practitioner; Physician Assistant; Physician Assistant Surgical; ADMIT Surgery
PROC: 0D1N0Z4 Bypass Sigmoid Colon to Cutaneous, Open Approach (ICD-10-PCS; principal; 2016-07-21)
PROC: 0DBN0ZZ Excision of Sigmoid Colon, Open Approach (ICD-10-PCS; principal; 2016-07-21)
PROC: 3E0T3CZ (ICD-10-PCS; 2016-07-21)
DX: K57.20 Diverticulitis of large intestine with perforation and abscess without bleeding (principal); F17.200 Nicotine dependence, unspecified, uncomplicated; G89.21 Chronic pain due to trauma
CPT/HCPCS: 2NAP; 2NASP; 86618; 87070; 87075; 36415; 74177; 81001; 81025; 82436; 87086; 88307; 93005; 93010; J0131; J0696; J1170; J1200; J1644; J1885; J2250; J2405; J3010; J3490; J7042

== ENCOUNTER 2017-07-04 14:43 | Observation (INO) | payer OTHER, MEDICARE ==
[~2017-07-04] VITALS: Ht 160 cm; Wt 49.9 kg
[~2017-07-04 14:43] MED LIST: CIPRO500 M1 PO; FLAGYL500 MG PO; HYDROCODON-ACE1 EAC1 PO; IBUPROFEN800 M1 PO; LORZONE750 M1 PO; MELATONIN10 M2 PO; MORPHINE SULFAT15 M4 PO; NORCO 7.5-3251 EACH PO; PROCHLORPERAZIN10 MG PO; SOMA350 M1 PO; SYMBICORT 80-10.2 GM INH; VICODIN ES 7.51 EACH PO; VICODIN HP 10-1 EACH PO; XOPENEX HFA15 GM INH
[2017-07-04 19:36] LABS: ABSOLUTE BASOPHIL COUNT 0.1 /CUMM (0.0-0.2); ABSOLUTE EOSINOPHIL COUNT 0.4 /CUMM (0.0-0.7); ABSOLUTE GRANULOCYTE CT 6.6 /CUMM (1.4-6.5); ABSOLUTE LYMPH COUNT 4.6 /CUMM (1.2-3.4); ABSOLUTE MONOCYTE COUNT 0.8 /CUMM (0.10-0.60); BASOPHIL % 0.6 % (0.0-2.0); GRANULOCYTE % 52.7 % (42.2-75.2); HEMATOCRIT 47.5 % (37-47); MEAN CORPUSCULAR HGB 30.3 PG (27.0-31.0); MEAN CORPUSCULAR VOLUME 91.8 FL (81.0-99.0); MEAN PLATELET VOLUME 7.7 FL (7.4-10.4); PLATELET COUNT 346 /CUMM (130-400); RBC DISTRIBUTION WIDTH 15.4 % (11.5-14.5); RED BLOOD CELL CT 5.17 /CUMM (4.20-5.40); WHITE BLOOD CELL COUNT 12.4 /CUMM (4.8-10.8)
--- NOTE | 2017-07-04 20:19 | ED GI/GU/ABDOMINAL COMPLAINT ---
History of Present Illness General Chief Complaint: General Adult Stated Complaint: CONSTIPATION Source: patient, old records Exam Limitations: no limitations Vital Signs & Intake/Output Vital Signs & Intake/Output Vital Signs Date Time Temp Pulse Resp B/P B/P Pulse O2 O2 Flow FiO2 Mean Ox Delivery Rate 07/04 2318 97.8 87 18 121/69 96 Room Air 07/04 2316 97 Room Air 07/04 2001 97.2 75 20 124/77 97 Room Air 07/04 1457 99.2 104 18 149/96 97 Room Air ED Intake and Output 07/05 0000 07/04 1200 Intake Total Output Total Balance Patient 110 lb Weight Weight Reported by Patient Measurement Method Allergies Coded Allergies: hydromorphone (From DILAUDID) (Intermediate, ITCHY 08/27/16) titanium (UNKNOWN 07/21/16) TITANIUM DYE Reconcile Medications Budesonide/Formoterol Fumarate (Symbicort 80-4.5 Mcg Inhaler) 80 MCG-4.5 MCG/ ACTUATION HFA.AER.AD 2 PUFF INH BID ASTHMA (Reported) Carisoprodol (SOMA) 350 MG TABLET 2 TAB PO Q4 PRN PAIN (Reported) Ciprofloxacin HCl (Cipro) 500 MG TABLET 1 TAB PO BID DIVERTICULITIS/COLITIS Hydrocodone/Acetaminophen (Kamrar 7.5-325 Tablet) 7.5 MG-325 MG TABLET 1-2 TAB PO Q4-6 PRN postop pain Levalbuterol Tartrate (Xopenex Hfa) 45 MCG/ACTUATION HFA.AER.AD 2 PUF INH Q4-6 PRN PRN ASTHMA (Reported) Melatonin 10 MG TABLET 2 TAB PO QPM SLEEP (Reported) Metronidazole (Flagyl) 500 MG TABLET 1 TAB PO TID DIVERTICULITIS/COLITIS Prochlorperazine Maleate 10 MG TABLET 1 TAB PO Q6 PRN GI (Reported) Triage Note: PT TO ER C/C CONSTIPATION X 6 DAYS DESPITE ENEMA X 2, APPLE CIDER VINEGAR, WALKING ETC. ADVISED BY DR. CADENA TO BE SEEN AND HAVE CT DONE. HX OF DIVERTICULITIS WITH COLOSTOMY (REVERSED IN 2017) Triage Nurses Notes Reviewed? yes LMP (ages 10-50): unknown ? n Is pt currently ? No Onset: Gradual Duration: week(s): (1-2), constant, continues in ED, getting worse Timing: recent history Quality/Severity: cramping, moderate, sharpness Severity Numbers: 7 Location: left lower quadrant Radiation: no radiation Activities at Onset: none Prior Abdominal Problems: similar symptoms Past Sexual History: Unobtainable at this time No Modifying Factors: none Modifying Factors: Worsens With: movement, palpation. Associated Symptoms: constipation HPI: 37-year-old female past medical history of diverticulitis one year status post colostomy reversal presents for evaluation of abdominal pain and constipation. Patient was seen several days ago with left lower quadrant abdominal pain. A CT scan was done which showed evidence of some bowel wall thickening around the anastomosis. She was started on Cipro Flagyl. Since then her pain has persisted and she has not had any bowel movements for 6 days now. She states she is passing some gas and mucus only. No nausea or vomiting. She is eating normally. She's been taking Vicodin with mild improvement. She saw Deven Larios MD in the office recommended A VINEGAR AND ENEMAS WHICH SHE'S DONE WITHOUT IMPROVEMENT. No fever bright red blood per rectum rectal pain or urinary symptoms. No vaginal bleeding or discharge. She also reports some lower back pain. (Manuel Oviedo) Past History Travel History Traveled to [place] past 21 day No Medical History Any Pertinent Medical History? see below for history Neurological: NONE EENT: NONE Cardiovascular: HEART MURMUR Respiratory: asthma Gastrointestinal: diverticulitis Hepatic: NONE Renal: NONE Musculoskeletal: CHRONIC PAIN Psychiatric: NONE Endocrine: NONE Blood Disorders: NONE Cancer(s): NONE OPEN SHANK COVERER/Reproductive: NONE History of MRSA: No History of VRE: No History of CDIFF: No Surgical History Surgical History: 19 ANKLE SURGERIES Psychosocial History Who do you live with Family Services at Home None What is your primary language Iraqi Tobacco Use: Current Daily Use Daily Tobacco Use Amount/Type: => 5 Cigarettes daily Family History Hx Contributory? No (Manuel Oviedo) Review of Systems Review of Systems Constitutional: Reports: no symptoms. EENTM: Reports: no symptoms. Respiratory: Reports: no symptoms. Cardiovascular: Reports: no symptoms. GI: Reports: see HPI, abdominal pain, constipation. Genitourinary: Reports: no symptoms. Musculoskeletal: Reports: no symptoms. Skin: Reports: no symptoms. Neurological/Psychological: Reports: no symptoms. Hematologic/Endocrine: Reports: no symptoms. Immunologic/Allergic: Reports: no symptoms. All Other Systems: Reviewed and Negative (Woody ZHENG,Manuel) Physical Exam Physical Exam General Appearance: well developed/nourished, no apparent distress, alert, awake Head: atraumatic, normal appearance Eyes: Bilateral: normal appearance, PERRL, EOMI. Ears, Nose, Throat, Mouth: hearing grossly normal, moist mucous membrane Neck: normal inspection, supple, full range of motion Respiratory: normal breath sounds, chest non-tender, no respiratory distress, lungs clear Cardiovascular: regular rate/rhythm, normal peripheral pulses Peripheral Pulses: 2+ radial (R), 2+ radial (L) Gastrointestinal: normal bowel sounds, soft, no organomegaly, tenderness (llq) Back: normal inspection, normal range of motion, no vertebral tenderness Extremities: normal range of motion Neurologic/Psych: no motor/sensory deficits, awake, alert, oriented x 3, normal gait, normal mood/affect Skin: intact, normal color, warm/dry Core Measures ACS in differential dx? No Sepsis Present: No Sepsis Focused Exam Completed? No (Woody ZHENG,Manuel) Progress Differential Diagnosis: appendicitis, biliary colic, bowel obstruction, colon cancer, cholecystitis, diverticulitis, hernia, ischemic bowel, inflamm bowel dis , kidney stone, ovarian cyst, ovarian torsion, pancreatitis, PID/cervicitis, peptic ulcer, PUD/GERD, perforated viscous, SBO, UTI/pyelo Plan of Care: Orders Procedure Date/time Status Nothing by Mouth 07/05 B Active CBC WITHOUT DIFFERENTIAL 07/05 0600 Active BASIC ELECTROLYTES PLUS BUN&CR 07/05 0600 Active Enema 07/04 2218 Active Pathway - chart 07/04 2216 Active Patient Data 07/04 2214 Active Code Status 07/04 221 Active LIPASE 07/04 1908 Complete LACTIC ACID 07/04 190 Complete COMPREHENSIVE METABOLIC PANEL 07/04 190 Complete CBC WITHOUT DIFFERENTIAL 07/04 190 Complete URINE 07/04 1553 Complete URINALYSIS 07/[address] in observation 07/04 UNK Active VTE Mechanical Prophylaxis 07/04 UNK Active Vital Signs 07/04 UNK Active Intake & Output 07/04 UNK Active Activity/Ambulation 07/04 UNK Active Current Medications Sig/Tom Start time Last Medication Dose Stop Time Status Admin Heparin Sodium 5,000 UNIT Q8 07/05 1400 AC (Porcine) Budesonide/ 2 PUF BID 07/05 0900 AC Formoterol Fumarate (SYMBICORT) Morphine Sulfate 2 MG Q2P PRN 07/04 2300 AC (MORPHINE SULFATE) Morphine Sulfate 4 MG Q2P PRN 07/04 2300 AC (MORPHINE SULFATE) Ondansetron HCl 4 MG Q6-PRN PRN 07/04 2230 AC (Zofran) Acetaminophen 650 MG Q6PRN PRN 07/04 2215 AC (Tylenol) Potassium Chloride 20 MEQ .Q8H 07/04 2215 CAN (KCl 20MEQ in D5W NS 1000ML) Dextrose/Sodium 1,000 ML Chloride (D5-Normal Saline) Potassium Chloride 20 MEQ Q8H 07/04 2215 AC 07/04 (KCl 20MEQ in D5W NS 2329 1000ML) Dextrose/Sodium 1,000 ML Chloride (D5-Normal Saline) Laboratory Tests 07/04/172207: Lactic Acid Cancelled 07/04/176: Anion Gap 15, Estimated GFR > 60, BUN/Creatinine Ratio 11.3, Glucose 81, Lactic Acid 0.6 L, Calcium 9.6, Total Bilirubin 0.4, AST 24, ALT 30, Alkaline Phosphatase 98, Total Protein 7.8, Albumin 4.9, Globulin 2.9, Albumin/Globulin Ratio 1.7, Lipase 123, CBC w Diff NO MAN DIFF REQ, RBC 5.17, MCV 91.8, MCH 30.3, MCHC 33.0, RDW 15.4 H, MPV 7.7, Gran % 52.7, Lymphocytes % 37.2, Monocytes % 6.5, Eosinophils % 3.0, Basophils % 0.6, Absolute Granulocytes 6.6 H, Absolute Lymphocytes 4.6 H, Absolute Monocytes 0.8 H, Absolute Eosinophils 0.4, Absolute Basophils 0.1 07/04/17 1606: Urine Color YEL, Urine Clarity CLEAR, Urine pH 6.5, Ur Specific [place] 1.015, Urine Protein NEG, Urine Ketones NEG, Urine Nitrite NEG, Urine Bilirubin NEG, Urine Urobilinogen 0.2, Ur Leukocyte Esterase TRACE H, Ur Microscopic SEDIMENT EXAMINED, Urine RBC 3-5, Urine WBC 1-3 H, Ur Epithelial Cells FEW, Urine Mucus FEW, Urine Hemoglobin TRACE-LYSED, Urine Glucose NEG, Urine Test NEGATIVE Patient seen and evaluated. She is here for reevaluation of left lower quadrant abdominal pain and constipation. She has not had a bowel movement greater than a week. She's tried enemas without any improvement. Her vital signs are stable. She does still have left lower quadrant pain. Labs CT scan IV Tylenol ordered. Blood work does not show any acute changes. She does have a white count which is similar to previous. CT scan shows 1. There is a tubular structure in the lower pelvis which has associated surgical sutures. This fluid collection has increased in volume and size since the exam of 06/30/2017. I suspect this is related to the bowel. 2. There is a large volume of stool in the colon. The volume of stool in the colon has increased since the exam of 04/30/2017. Spoke Deven Larios MD who recommends admission for observation. She will require surgical consult, enemas, serial abdominal exams, GI consult, IV fluids, IV pain meds. Case discussed with he agrees. Diagnostic Imaging: Viewed by Me: CT Scan. Discussed w/RAD: CT Scan. Radiology Impression: PATIENT: BYRON BURT PRESENT AGE: 37 PATIENT ACCOUNT NO: [id number] : 79 LOCATION: [facility] ORDERING PHYSICIAN: Manuel ZHENG SERVICE DATE: 07/04/17 EXAM TYPE: CAT - CT ABD & PELVIS W IV CONTRAST EXAMINATION: CT ABDOMEN AND PELVIS WITH CONTRAST CLINICAL INFORMATION: Constipation. Left lower quadrant pain. No bowel movement for one week. COMPARISON: CT scan of abdomen and pelvis 06/30/2017. TECHNIQUE: Multidetector volumetric imaging was performed of the abdomen and pelvis following IV administration of 95 mL of Optiray 320 intravenous contrast. Sagittal and coronal reformatted images were obtained on the technologist's workstation. DLP: 264.53 mGy-cm FINDINGS: LUNG BASES: The visualized lung bases are unremarkable. LIVER, GALLBLADDER, AND BILIARY TREE: The liver is normal in size, shape, and attenuation. No focal hepatic lesion or biliary ductal dilatation is present. The gallbladder is unremarkable with no evidence of radiopaque gallstones, gallbladder wall thickening, or obvious pericholecystic inflammatory changes. PANCREAS: Unremarkable. SPLEEN: Unremarkable. ADRENAL GLANDS: Unremarkable. KIDNEYS AND URETERS: There are multiple bilateral nonobstructive renal stones. These range in size from about 2 mm to 6 mm. There is no ureteral calculi. There is no hydronephrosis. BLADDER: Unremarkable. GASTROINTESTINAL TRACT: Patient has had prior surgery. In the lower pelvis there is a fluid-filled tubular structure which is presumably related to the bowel that has surgical sutures both proximal and distal. This loop measures about 15 cm of length. This measures about 6 cm transverse. This fluid collection has increased in size since the CAT scan of 06/30/2017. There is no edema of the wall of this collection. There is a large volume of stool throughout the colon. The volume of stool has increased since the prior exam of 06/30/2017, particularly in the right colon. The cecum is distended to a transverse diameter of 7 cm. There is no abnormal small bowel dilatation. There is no bowel wall thickening or edema. MESENTERY: No inflammation. No free air or free fluid. ABDOMINAL WALL: No significant hernia is appreciated. LYMPH NODES: Normal. VASCULAR: Unremarkable. PELVIC VISCERA: The uterus is anteverted. The cystic lesion in the left adnexa on the CAT scan of 06/30/2017 has regressed and now measures about 2 cm in size, decreased from prior measurement of 4 cm on 2017. OSSEOUS STRUCTURES: Unremarkable. IMPRESSION: 1. There is a tubular structure in the lower pelvis which has associated surgical sutures. This fluid collection has increased in volume and size since the exam of 06/30/2017. I suspect this is related to the bowel. 2. There is a large volume of stool in the colon. The volume of stool in the colon has increased since the exam of 2017. 3. The left adnexal cystic lesion seen on the exam of 06/30/2017 has significantly reduced in size, now measuring 2 cm. 4. Multiple bilateral renal stones. No hydronephrosis or ureteral calculi. This critical result was discussed with NORM Mckay on 07/04/2017, 8:35 PM and it was ascertained that the content and urgency of the report was understood at the time of direct communication. DICTATED BY: Shan Denny MD DATE/TIME DICTATED:07/04/172016 PRODUCT TRAINER:CISCO DATE/TIME TRANSCRIBED:07/04/172016 CONFIDENTIAL, DO NOT COPY WITHOUT APPROPRIATE AUTHORIZATION. Initial ED EKG: none (Manuel Oviedo) Departure Departure Disposition: STILL A PATIENT Condition: Stable Clinical Impression Primary Impression: Complications of internal anastomosis of GI tract Referrals: Jaja Sotelo MD (PCP/Family) Departure Forms: Customer Survey General Discharge Information Admission Note Documentation of Exam: Documentation of any treatments & extenuating circumstances including Concerns Regarding Discharge (functional status, medication knowledge or non-compliance, living conditions, etc.) that warrant an admission rather than observation: [ Observation Note Spoke With: Harriet DENISE,Deven Doan Physician Advisor Notified: DEACON DENISE,MARCOS Hanson Place Patient In: Non-ED OBS Care Area Rationale for Observation: My rational for observation is as follows [Serial abdominal exams, GI consultation, surgical consult, enemas, serial labs, IV fluids, IV pain meds]]. (Manuel Oviedo) PA/NET DEVELOPMENT MANAGER Co-Sign Statement Statement: ED Attending supervision documentation- x I saw and evaluated the patient. I have also reviewed all the pertinent lab results and diagnostic results. I agree with the findings and the plan of care as documented in the PA's/NET DEVELOPMENT MANAGER's documentation. Chronic constipation causing anastamosis enlargement and pain [] I have reviewed the ED Record and agree with the PA's/NET DEVELOPMENT MANAGER's documentation. [] Additions or exceptions (if any) to the PAs/NET DEVELOPMENT MANAGER's note and plan are summarized below: [] (Oscar DENISE,Ajay)
--- NOTE | 2017-07-04 21:20 | CT SCAN REPORT ---
EXAMINATION: CT ABDOMEN AND PELVIS WITH CONTRAST CLINICAL INFORMATION: Constipation. Left lower quadrant pain. No bowel movement for one week. COMPARISON: CT scan of abdomen and pelvis 06/30/2017. TECHNIQUE: Multidetector volumetric imaging was performed of the abdomen and pelvis following IV administration of 95 mL of Optiray 320 intravenous contrast. Sagittal and coronal reformatted images were obtained on the technologist's workstation. DLP: 264.53 mGy-cm FINDINGS: LUNG BASES: The visualized lung bases are unremarkable. LIVER, GALLBLADDER, AND BILIARY TREE: The liver is normal in size, shape, and attenuation. No focal hepatic lesion or biliary ductal dilatation is present. The gallbladder is unremarkable with no evidence of radiopaque gallstones, gallbladder wall thickening, or obvious pericholecystic inflammatory changes. PANCREAS: Unremarkable. SPLEEN: Unremarkable. ADRENAL GLANDS: Unremarkable. KIDNEYS AND URETERS: There are multiple bilateral nonobstructive renal stones. These range in size from about 2 mm to 6 mm. There is no ureteral calculi. There is no hydronephrosis. BLADDER: Unremarkable. GASTROINTESTINAL TRACT: Patient has had prior surgery. In the lower pelvis there is a fluid-filled tubular structure which is presumably related to the bowel that has surgical sutures both proximal and distal. This loop measures about 15 cm of length. This measures about 6 cm transverse. This fluid collection has increased in size since the CAT scan of 06/30/2017. There is no edema of the wall of this collection. There is a large volume of stool throughout the colon. The volume of stool has increased since the prior exam of 06/30/2017, particularly in the right colon. The cecum is distended to a transverse diameter of 7 cm. There is no abnormal small bowel dilatation. There is no bowel wall thickening or edema. MESENTERY: No inflammation. No free air or free fluid. ABDOMINAL WALL: No significant hernia is appreciated. LYMPH NODES: Normal. VASCULAR: Unremarkable. PELVIC VISCERA: The uterus is anteverted. The cystic lesion in the left adnexa on the CAT scan of 06/30/2017 has regressed and now measures about 2 cm in size, decreased from prior measurement of 4 cm on 06/30/2017. OSSEOUS STRUCTURES: Unremarkable. IMPRESSION: 1. There is a tubular structure in the lower pelvis which has associated surgical sutures. This fluid collection has increased in volume and size since the exam of 06/30/2017. I suspect this is related to the bowel. 2. There is a large volume of stool in the colon. The volume of stool in the colon has increased since the exam of 04/30/2017. 3. The left adnexal cystic lesion seen on the exam of 06/30/2017 has significantly reduced in size, now measuring 2 cm. 4. Multiple bilateral renal stones. No hydronephrosis or ureteral calculi. This critical result was discussed with NORM Mckay on 07/04/2017, 8:35 PM and it was ascertained that the content and urgency of the report was understood at the time of direct communication.
--- NOTE | 2017-07-04 22:22 | Admission Core Measures ---
Acute Coronary Syndrome (CM) ACS Core Measures Acute Coronary Syndrome Diagnosis No Congestive Heart Failure (NEW) CHF Core Measures Congestive Heart Failure Diagnosis No Cerebrovascular Accident (NEW) CVA Core Measures CVA/TIA Diagnosis No Venous Thromboembolism VTE Core Johnathon (View Protocol) VTE Risk Factors Acute Medical Illness No Mechanical VTE Prophylaxis d/t N/A MechProphylax Ordered No VTE Pharm Prophylaxis d/t NA PharmProphylax ordered Problem List As ranked by this Provider includes Assessment & Plan 1. Constipation HOME MEDS Home Med List Budesonide/Formoterol Fumarate (Symbicort 80-4.5 Mcg Inhaler) 80 MCG-4.5 MCG/ ACTUATION HFA.AER.AD 2 PUFF INH BID ASTHMA (Reported) Carisoprodol (SOMA) 350 MG TABLET 2 TAB PO Q4 PRN PAIN (Reported) Ciprofloxacin HCl (Cipro) 500 MG TABLET 1 TAB PO BID DIVERTICULITIS/COLITIS Hydrocodone/Acetaminophen ([place] 7.5-325 Tablet) 7.5 MG-325 MG TABLET 1-2 TAB PO Q4-6 PRN postop pain Levalbuterol Tartrate (Xopenex Hfa) 45 MCG/ACTUATION HFA.AER.AD 2 PUF INH Q4-6 PRN PRN ASTHMA (Reported) Melatonin 10 MG TABLET 2 TAB PO QPM SLEEP (Reported) Metronidazole (Flagyl) 500 MG TABLET 1 TAB PO TID DIVERTICULITIS/COLITIS Prochlorperazine Maleate 10 MG TABLET 1 TAB PO Q6 PRN GI (Reported)
--- NOTE | 2017-07-04 22:28 | History & Physical Pre-Op ---
General Information and HPI History of Present Illness: 37yoF presents to ED woth complaints of inability to have bm and crampy abdominal pain. She is well known to surgical service and Dr. larios, as she is s/p hartmanns with reversal. She has history of chonic pain on daily narcotics, and struggles with constipation. Last "real" BM was 6 days ago, though did pass some mucous and flatus today. Denies nausea/vomiting, has decreased appetite. This is her second visit to ED this week for this same problem, and was seen by Dr. Larios Sunday. Allergies/Medications Allergies: Coded Allergies: hydromorphone (From DILAUDID) (Intermediate, ITCHY 08/27/16) titanium (UNKNOWN 07/21/16) TITANIUM DYE Home Med list Budesonide/Formoterol Fumarate (Symbicort 80-4.5 Mcg Inhaler) 80 MCG-4.5 MCG/ ACTUATION HFA.AER.AD 2 PUFF INH BID ASTHMA (Reported) Carisoprodol (SOMA) 350 MG TABLET 2 TAB PO Q4 PRN PAIN (Reported) Ciprofloxacin HCl (Cipro) 500 MG TABLET 1 TAB PO BID DIVERTICULITIS/COLITIS Hydrocodone/Acetaminophen ([place] 7.5-325 Tablet) 7.5 MG-325 MG TABLET 1-2 TAB PO Q4-6 PRN postop pain Levalbuterol Tartrate (Xopenex Hfa) 45 MCG/ACTUATION HFA.AER.AD 2 PUF INH Q4-6 PRN PRN ASTHMA (Reported) Melatonin 10 MG TABLET 2 TAB PO QPM SLEEP (Reported) Metronidazole (Flagyl) 500 MG TABLET 1 TAB PO TID DIVERTICULITIS/COLITIS Prochlorperazine Maleate 10 MG TABLET 1 TAB PO Q6 PRN GI (Reported) Past History Medical History Neurological: NONE EENT: NONE Cardiovascular: HEART MURMUR Respiratory: asthma Gastrointestinal: diverticulitis Hepatic: NONE Renal: NONE Musculoskeletal: CHRONIC PAIN Psychiatric: NONE Endocrine: NONE Blood Disorders: NONE Cancer(s): NONE ADJUNCT WRITING INSTRUCTOR/Reproductive: NONE History of MRSA: No History of VRE: No History of CDIFF: No Surgical History Pertinent Surgical History: multiple ANKln operations sp hartmanns with ostomy reversal Past Family/Social History Psychosocial History Services at Home None Exam & Diagnostic Data Last 24 Hrs of Vital Signs/I&O Vital Signs Date Time Temp Pulse Resp B/P B/P Pulse O2 O2 Flow FiO2 Mean Ox Delivery Rate 07/04 2001 97.2 75 20 124/77 97 Room Air 07/04 1457 99.2 104 18 149/96 97 Room Air Intake & Output 07/04 1600 07/04 0800 07/04 0000 Intake Total Output Total Balance Patient 110 lb Weight Weight Reported by Patient Measurement Method Physical Exam: gen- nad card- s1s2 pulm-ctab abd- anorectal- ext- Last 24 Hrs of Labs/Julius: Laboratory Tests 07/04/172207: Lactic Acid Cancelled 07/04/171925: Anion Gap 15, Estimated GFR > 60, BUN/Creatinine Ratio 11.3, Glucose 81, Lactic Acid 0.6 L, Calcium 9.6, Total Bilirubin 0.4, AST 24, ALT 30, Alkaline Phosphatase 98, Total Protein 7.8, Albumin 4.9, Globulin 2.9, Albumin/Globulin Ratio 1.7, Lipase 123, CBC w Diff NO MAN DIFF REQ, RBC 5.17, MCV 91.8, MCH 30.3, MCHC 33.0, RDW 15.4 H, MPV 7.7, Gran % 52.7, Lymphocytes % 37.2, Monocytes % 6.5, Eosinophils % 3.0, Basophils % 0.6, Absolute Granulocytes 6.6 H, Absolute Lymphocytes 4.6 H, Absolute Monocytes 0.8 H, Absolute Eosinophils 0.4, Absolute Basophils 0.1 07/04/17 1606: Urine Color YEL, Urine Clarity CLEAR, Urine pH 6.5, Ur Specific [place] 1.015, Urine Protein NEG, Urine Ketones NEG, Urine Nitrite NEG, Urine Bilirubin NEG, Urine Urobilinogen 0.2, Ur Leukocyte Esterase TRACE H, Ur Microscopic SEDIMENT EXAMINED, Urine RBC 3-5, Urine WBC 1-3 H, Ur Epithelial Cells FEW, Urine Mucus FEW, Urine Hemoglobin TRACE-LYSED, Urine Glucose NEG, Urine Test NEGATIVE Assessment/Plan Assessment/Plan: A- 37yoF with constipation and distended colon, likely related to anastamosis and narcotic dependence for chronic pain, now starting to pass flatus and mucous discharge, otherwise stable. P- gentle tap water enemas x3 overnight ivf npo prn pain meds d/w dr larios. ?possible eua this hospital stay As Ranked By This Provider Problem List: 1. Constipation 2. Complications of internal anastomosis of GI tract
[2017-07-05 01:00] VITALS: BP 128/80
[2017-07-05 07:07] VITALS: BP 132/78
--- NOTE | 2017-07-05 08:09 | PN- General Surgery ---
Subjective Subjective: Awake, alert Had 4 enemas last night with little to no relief. Has not passed anything solid - just "brown water" pain is well controlled on medication - she has just taken meds prior to exam Denies nausea Objective Vital Signs and I&Os Vital Signs Date Time Temp Pulse Resp B/P B/P Pulse O2 O2 Flow FiO2 Mean Ox Delivery Rate 07/05 0707 98.2 89 20 132/78 98 Room Air 07/05 0100 98.0 88 20 128/80 98 Room Air 07/04 2318 97.8 87 18 121/69 96 Room Air 07/04 2316 97 Room Air 07/04 2001 97.2 75 20 124/77 97 Room Air 07/04 1457 99.2 104 18 149/96 97 Room Air Intake & Output 07/05 0800 07/05 0000 07/04 1600 07/04 0800 07/04 0000 Intake Total 1000 Output Total Balance 1000 Intake, IV 1000 Patient 110 lb 110 lb Weight Weight Reported by Patient Measurement Method Physical Exam: afebrile, vss General: alert and oriented times three Chest: clear anteriorly bilaterally, RRR Abd: soft, non distended, tender only to deep palpation lower mid abdomen, otherwise nontender Ext: warm, no edema Assessment/Plan Assessment/Plan 37yo female with extensive abdominal surgical history await Dr Larios assessment this morning keep npo/ivf for now Core Measures Venous Thromboembolism VTE Risk Factors Acute Medical Illness No Mechanical VTE Prophylaxis d/t N/A MechProphylax Ordered No VTE Pharm Prophylaxis d/t NA PharmProphylax ordered
[2017-07-05 08:26] LABS: ABSOLUTE BASOPHIL COUNT 0.1 /CUMM (0.0-0.2); ABSOLUTE EOSINOPHIL COUNT 0.3 /CUMM (0.0-0.7); ABSOLUTE LYMPH COUNT 3.8 /CUMM (1.2-3.4); ABSOLUTE MONOCYTE COUNT 0.6 /CUMM (0.10-0.60); EOSINOPHIL % 3.6 % (0-5)
[2017-07-05 09:01] LABS: BASOPHIL % 0.8 % (0.0-2.0); GRANULOCYTE % 45.6 % (42.2-75.2); MEAN CORPUSCULAR HGB 30.4 PG (27.0-31.0); MEAN CORPUSCULAR VOLUME 92.1 FL (81.0-99.0); MEAN PLATELET VOLUME 8.4 FL (7.4-10.4); PLATELET COUNT 329 /CUMM (130-400); RBC DISTRIBUTION WIDTH 15.2 % (11.5-14.5); RED BLOOD CELL CT 4.48 /CUMM (4.20-5.40); WHITE BLOOD CELL COUNT 8.8 /CUMM (4.8-10.8)
[2017-07-05 09:09] LABS: HEMATOCRIT 41.3 % (37-47)
[2017-07-05 14:45] VITALS: BP 120/72
--- NOTE | 2017-07-05 18:32 | Proc Note Colonoscopy ---
Colonoscopy Procedure Medical History: unchanged (see meditech) Mental Status: alert/oriented Heart/Lung Eval Prior to Sedation: within normal limits Candidate for Sedation? Yes Date of Last Colonoscopy: No prior colonoscopy. Procedure Date: 07/05/17 Procedure Type: flexible sigmoidoscopy Commutator Presser: Gabriel Potter MD ASA Classification: II Indications: Evaluate distal colonic obstruction in a pt status post hernández pouch reversal. Instrument (Colonoscope): single channel Meds Received: MAC Patient's Tolerance: good Complications: none Extent Reached: splenic flexure Prep: adeqauate Procedure: The risks of a colonoscopy was explained to the patient including, but not limited to, the risks of perforation, bleeding and/or a missed lesion and then written informed consent was obtained. After getting written informed consent the patient was placed in the left lateral decubitus position with pulse oximetry, cardiac monitoring, and supplemental oxygen was given. IV sedation was given until the desired effect was achieved. A rectal exam was performed which was normal. A high definition variable stiffness Olympus colonoscope was then inserted into the anus and advanced to the splenic flexure with little difficulty. Retroflexed views were obtained and photodocumentation was obtained. Close inspection of the colonic mucosa was performed on insertion and withdrawal of the colonoscope with a withdrawal time that was adequate in length to closely inspect all folds and marie of the colon. Findings: At approximately 15 cm from the anus the mucosa was edematous and somewhat friable. The lumen of the colon was narrowed and somewhat tortuous, but the scope was able to traverse the area with gentle manipulation. The edematous friable mucosa did not have an obvious lumen to enter and there was nothing seen draining from the areas well. Attempts to locate the lumen were met with significant resistance so was not felt to be safe to advance the scope further. Proximal to the anastomosis the colonic mucosa was grossly normal in appearance and there was a moderate amount of solid stool. When the scope was proximal to the anastomosis air was suctioned until the colonic lumen collapsed. The colonic mucosa distal to the anastomosis was also normal appearance and retroflexed views revealed small internal hemorrhoids. Impression: 1. Abnormal appearing end to side surgical anastomosis at 15 cm from the anus that the scope was able to traverse, but the blind loop (which is presumably a mucocele) was not able to be entered. 2. Small internal hemorrhoids. Recommendations: 1. Continue current bowel regimen. 2. Consideration may be given for a barium or gastrogaffin enema to better define the anatomy. 3. Consideration may also be given to refer for a rectal EUS to see if the mucocele can be drained endoscopically through the rectal wall vs surgical intervention. Followup Colonscopy Screen In: at the age of 49 CC: Harriet DENISE,Deven New.
--- NOTE | 2017-07-05 20:12 | History & Physical Pre-Op ---
General Information and HPI History of Present Illness: CC: unable to have BM HPI: 37 yo smoker with chronic constipation, in part 2ary to chronic narcotics, s/p Hartmans for peritonitis from diverticulitis last July. I just saw her Sun after she'd been to ER Sat for pevic pressure and no BM for several days. CT was significant for abnormal appearing colorectal anastomosis and a left ovarian cyst, she was still passing gas, and some liquid, plan was fleets enema, followup with DIGITAL PRODUCT MANAGER, and remove tampon. Yesterday called office no significant relief, persistent pelvic pressure, I told her to go to ER. Throughout this episode, no N/V or fevers. Colostomy reversal was 11-14-16, PFSH and ROS were reviewed and have not changed since the E/M at [facility] on 07-21-16, unless stated. FHx sig for Arthritis. No new meds or Dxes. Allergies/Medications Allergies: Coded Allergies: hydromorphone (From DILAUDID) (Intermediate, ITCHY 08/27/16) titanium (UNKNOWN 07/21/16) TITANIUM DYE Home Med list Budesonide/Formoterol Fumarate (Symbicort 80-4.5 Mcg Inhaler) 80 MCG-4.5 MCG/ ACTUATION HFA.AER.AD 2 PUFF INH BID ASTHMA (Reported) Carisoprodol (SOMA) 350 MG TABLET 2 TAB PO Q4 PRN PAIN (Reported) Ciprofloxacin HCl (Cipro) 500 MG TABLET 1 TAB PO BID DIVERTICULITIS/COLITIS Hydrocodone/Acetaminophen ([place] 7.5-325 Tablet) 7.5 MG-325 MG TABLET 1-2 TAB PO Q4-6 PRN postop pain Levalbuterol Tartrate (Xopenex Hfa) 45 MCG/ACTUATION HFA.AER.AD 2 PUF INH Q4-6 PRN PRN ASTHMA (Reported) Melatonin 10 MG TABLET 2 TAB PO QPM SLEEP (Reported) Metronidazole (Flagyl) 500 MG TABLET 1 TAB PO TID DIVERTICULITIS/COLITIS Prochlorperazine Maleate 10 MG TABLET 1 TAB PO Q6 PRN GI (Reported) Past History Medical History Blood Transfusion Hx: No Neurological: NONE EENT: NONE Cardiovascular: HEART MURMUR Respiratory: asthma Gastrointestinal: diverticulitis Hepatic: NONE Renal: NONE Musculoskeletal: CHRONIC PAIN Psychiatric: NONE Endocrine: NONE Blood Disorders: NONE Cancer(s): NONE DIGITAL PRODUCT MANAGER/Reproductive: NONE History of MRSA: No History of VRE: No History of CDIFF: No Isolation History: Standard Surgical History Pertinent Surgical History: multiple ANKln operations sp hartmanns with ostomy reversal Past Family/Social History Psychosocial History Services at Home None Smoking Status: Current Everyday Smoker Review of Systems Review of Systems: as above Exam & Diagnostic Data Last 24 Hrs of Vital Signs/I&O I reviewed Vital Signs Date Time Temp Pulse Resp B/P B/P Pulse O2 O2 Flow FiO2 Mean Ox Delivery Rate 07/05 1445 97.3 99 20 120/72 99 Room Air 07/05 0707 98.2 89 20 132/78 98 Room Air 07/05 0100 98.0 88 20 128/80 98 Room Air 07/04 2318 97.8 87 18 121/69 96 Room Air 07/04 2316 97 Room Air 07/04 2002 97.2 75 20 124/77 97 Room Air I reviewed Intake & Output 07/05 1600 07/05 0800 07/05 0000 Intake Total 875 1000 Output Total Balance 875 1000 Intake, IV 875 1000 Intake, Oral 0 Patient 110 lb Weight Physical Exam: Constitutional: pleasant, no acute distress, conversant Eyes: sclera anicteric ENMT: ears and nose atraumatic, moist mucous membranes, good dentition, no lip lesions Neck: Supple, trachea is midline, no cervical or supraclavicular adenopathy and no palpable thyromegaly Cardiovascular: S1, S2, no murmurs, no peripheral edema Respiratory: clear to auscultation with normal respiratory effort and no intercostal retractions GI: abdomen soft, nondistended, but has suprapubic tenderness no rebound little bit of guarding, no obvious palpable mass, no palpable hepatosplenomegaly Extremities / lymphatics: symmetrically warm, free range of motion no peripheral edema, no cervical, supraclavicular, axillary, or inguinal adenopathy Musculoskeletal: Did not evaluate gait and station, no digital cyanosis, good muscle strength and tone no atrophy, motor grossly 5 out of 5 throughout Skin: no jaundice, no rashes warm, nondiaphoretic, no areas of erythema or induration Psychiatric: mood and affect are appropriate and alert and oriented to person place and time Last 24 Hrs of Labs/Julius: I reviewed Laboratory Tests 07/05/17 0646: Anion Gap 9, Estimated GFR > 60, BUN/Creatinine Ratio 6.7 L, CBC w Diff NO MAN DIFF REQ, RBC 4.48, MCV 92.1, MCH 30.4, MCHC 33.0, RDW 15.2 H, MPV 8.4, Gran % 45.6, Lymphocytes % 42.8, Monocytes % 7.2, Eosinophils % 3.6, Basophils % 0.8, Absolute Granulocytes 4.0, Absolute Lymphocytes 3.8 H, Absolute Monocytes 0.6, Absolute Eosinophils 0.3, Absolute Basophils 0.1 07/04/17 2208: Lactic Acid Cancelled Assessment/Plan Assessment/Plan: Studies: reviewed CT on PACS myself from and . That dilated structure compressing colon is sl larger, the left ovarian cyst has decreased. WBC 12 no change. Impression: baseline multifactorial constipation aggravated by colon partial obstruction from extrinsic compression from a mucocele arising from the blind end of rectal stump that remained after the end to side EEA anastomosis 8 months ago. This part usually communicates with the rectum, becomes scarred, collapsed and not clinically significant, in her it has become occluded, twisted? and now engorged with mucus, creating a mass effect in deep pelvis. Still some mucus does come out, on CT it looks like it communicates, but after several enemas, no significant relief. Plan is that first we need to decompress this cystic structure, it's causing an obstruction it's enlarging and is at risk for rupturing itself. I consulted gastroenterology they just tried a flexible sigmoidoscopy and although the fecal stream is patent they could not safely get into this side pocket at the anastomosis. We initially admitted her for observation but since the obstruction is not yet resolved, he should be switched to admission status. Trying to avoid emergency surgery, we discussed the case and the plan is to transfer her for a rectal ultrasound, through which a can hopefully access this mucocele and decompress it with a needle. If successful we then have some time to improve her bowel function and plan treatment of this mucocele so it doesn't recur. As Ranked By This Provider Problem List: 1. Colon obstruction 2. Abdominal pain 3. History of colostomy reversal 4. Constipation 5. Complications of internal anastomosis of GI tract
[2017-07-05 22:28] VITALS: BP 140/80
--- NOTE | 2017-07-06 07:54 | Patient Discharge Instructions ---
Discharge Instructions General Discharge Information You were seen/treated for: PRESUMED MUCOCELE @ SURGICAL ANASTOMOSIS PARTIAL COLON OBSTRUCTION You had these procedures: FLEX SIG (07/05/17) WITH EVIDENCE OF PRESUMED MUCOCELE @ SURGICAL ANASTOMOSIS, AROUND 15 CM FROM ANUS Watch for these problems: FEVER>101.3, INCREASED PAIN, NAUSEA/VOMITING Diet Continue normal diet: No Recommended Diet: NOTHING BY MOUTH Additional DIET Information: DIET PENDING TREATMENT PLAN / CARE Activity Full Activity/No Limits: Yes Activity Self Limited: Yes Acute Coronary Syndrome Inclusion Criteria At DC or during hospital stay patient has or had the following: ACS DIAGNOSIS No Discharge Core Measures Meds if any: Prescribed or Continued at Discharge Meds if any: NOT Prescribed or Continued at Discharge Congestive Heart Failure Inclusion Criteria At DC or during hospital stay patient has or had the following: CHF DIAGNOSIS No Discharge Core Measures Meds if any: Prescribed or Continued at Discharge Meds if any: NOT Prescribed or Continued at Discharge Cerebrovascular accident Inclusion Criteria At DC or during hospital stay patient has or had the following: CVA/TIA Diagnosis No Discharge Core Measures Meds if any: Prescribed or Continued at Discharge Meds if any: NOT Prescribed or Continued at Discharge Venous thromboembolism Inclusion Criteria VTE Diagnosis No VTE Type NONE VTE Confirmed by (Test) NONE Discharge Core Measures - Per Current guidelines, there needs to be overlap - treatment for the first 5 days of Warfarin therapy. - If discharged on Warfarin prior to 5 days of - overlap therapy, the patient will need to be - assessed for post discharge needs including - *Post discharge parental anticoagulation - *Warfarin and/or parental anticoagulation education - *Follow up date to check INR post discharge At least 5 days overlap therapy as Inpatient No Meds if any: Prescribed or Continued at Discharge Note: Overlap Therapy is Warfarin and Anticoagulant Meds if any: NOT Prescribed or Continued at Discharge
--- NOTE | 2017-07-06 08:00 | Surgical Discharge Summary ---
Visit Information Visit Dates Admission Date: 07/04/17 Discharge Date: 07/06/17 History of Present Illness Chief Complaint: ABDOMINAL PAIN Medical History Blood Transfusion Hx: No Neurological: NONE EENT: NONE Cardiovascular: HEART MURMUR Respiratory: asthma Gastrointestinal: diverticulitis Hepatic: NONE Renal: NONE Musculoskeletal: CHRONIC PAIN Psychiatric: NONE Endocrine: NONE Blood Disorders: NONE Cancer(s): NONE CAMP DIRECTOR/Reproductive: NONE History of MRSA: No History of VRE: No History of CDIFF: No Isolation History: Standard Surgical History Pertinent Surgical History: multiple ANKln operations sp hartmanns with ostomy reversal Psychosocial History Who Do You Live With? Family Services at Home: None What is Your Primary Language? Luxembourgish Review of Systems: SEE H&P Hospital Course Course Attending Physician: Harriet DENIES,Deven Doan Primary Care Physician: Deepak DENISE,[facility] Course: This 37 year old female known to , presented to [facility] ED and was placed in observation status on 07/04/17 due to crampy abdominal pain. She is a smoker with chronic constipation, probably secondary to chronic narcotics, s/p Hartmans for peritonitis from diverticulitis last July. Her colostomy reversal was 11/14/16. She was seen in consultation by (GI), who did a flex sig on her 07/05/17, which he identified likely a presumed mucocele at the surgical anastomosis, approximately 15cm from the anus. A rectal ultrasound with possible drainage of the presumed mucocele is recommended, but this requires transfer to a more specialized center / hospital that can accomplish this treatment. She is currently npo awaiting acceptance and transfer. Complications: None Allergies: Coded Allergies: hydromorphone (From DILAUDID) (Intermediate, ITCHY 08/27/16) titanium (UNKNOWN 07/21/16) TITANIUM DYE Significant Procedures: Colonoscopy Procedure Medical History: unchanged (see meditech) Mental Status: alert/oriented Heart/Lung Eval Prior to Sedation: within normal limits Candidate for Sedation? Yes Date of Last Colonoscopy: No prior colonoscopy. Procedure Date: 07/05/17 Procedure Type: flexible sigmoidoscopy Devil Dog: Tariq DENISE,Gabriel Hamilton ASA Classification: II Indications: Evaluate distal colonic obstruction in a pt status post hernández pouch reversal. Instrument (Colonoscope): single channel Meds Received: MAC Patient's Tolerance: good Complications: none Extent Reached: splenic flexure Prep: adeqauate Procedure: The risks of a colonoscopy was explained to the patient including, but not limited to, the risks of perforation, bleeding and/or a missed lesion and then written informed consent was obtained. After getting written informed consent the patient was placed in the left lateral decubitus position with pulse oximetry, cardiac monitoring, and supplemental oxygen was given. IV sedation was given until the desired effect was achieved. A rectal exam was performed which was normal. A high definition variable stiffness Olympus colonoscope was then inserted into the anus and advanced to the splenic flexure with little difficulty. Retroflexed views were obtained and photodocumentation was obtained. Close inspection of the colonic mucosa was performed on insertion and withdrawal of the colonoscope with a withdrawal time that was adequate in length to closely inspect all folds and marie of the colon. Findings: At approximately 15 cm from the anus the mucosa was edematous and somewhat friable. The lumen of the colon was narrowed and somewhat tortuous, but the scope was able to traverse the area with gentle manipulation. The edematous friable mucosa did not have an obvious lumen to enter and there was nothing seen draining from the areas well. Attempts to locate the lumen were met with significant resistance so was not felt to be safe to advance the scope further. Proximal to the anastomosis the colonic mucosa was grossly normal in appearance and there was a moderate amount of solid stool. When the scope was proximal to the anastomosis air was suctioned until the colonic lumen collapsed. The colonic mucosa distal to the anastomosis was also normal appearance and retroflexed views revealed small internal hemorrhoids. Impression: 1. Abnormal appearing end to side surgical anastomosis at 15 cm from the anus that the scope was able to traverse, but the blind loop (which is presumably a mucocele) was not able to be entered. 2. Small internal hemorrhoids. Recommendations: 1. Continue current bowel regimen. 2. Consideration may be given for a barium or gastrogaffin enema to better define the anatomy. 3. Consideration may also be given to refer for a rectal EUS to see if the mucocele can be drained endoscopically through the rectal wall vs surgical intervention. Followup Colonscopy Screen In: at the age of 49 CC: Harriet DENISE,Deven New. DICTATED BY: Gabriel Potter MD DATE/TIME DICTATED:07/05/171806 [employer] SUPERVISOR:SRUTHI DATE/TIME TRANSCRIBED:07/05/171806 Disposition Summary Disposition Principal Diagnosis: Presumed mucocele at surgical anastomosis (15cm from anus) Additional Diagnosis: Partial colonic obstruction Discharge Disposition: other general hospital Discharge Instructions General Discharge Information Code Status: Full Code Patient's Diet: nothing by mouth, until treatment plan further defined Patient's Activity: as tolerated Follow-Up Instructions/Appts: to be transferred to another hospital for more specialized treatment / care follow up with in 1-2 weeks, depending on further care / recommendations Medications at Discharge Discharge Medications: Stop taking the following medications: Prochlorperazine Maleate (Prochlorperazine Maleate) 10 MG TABLET ORAL EVERY SIX HOURS as needed for GI Qty = 40 Ciprofloxacin HCl (Cipro) 500 MG TABLET ORAL TWICE DAILY Qty = 20 Metronidazole (Flagyl) 500 MG TABLET ORAL THREE TIMES DAILY Qty = 30 Continue taking these medications: Carisoprodol (SOMA) 350 MG TABLET 2 Tablet ORAL Every 4 hours as needed for PAIN Comments: NOT GIVEN THIS ADMISSION Budesonide/Formoterol Fumarate (Symbicort 80-4.5 Mcg Inhaler) 80 MCG-4.5 MCG/ ACTUATION HFA.AER.AD 2 PUFF Inhale through mouth TWICE DAILY Comments: NOT GIVEN THIS ADMISSION Levalbuterol Tartrate (Xopenex Hfa) 45 MCG/ACTUATION HFA.AER.AD 2 Puff Inhale through mouth EVERY 4-6 HOURS NEEDED as needed for ASTHMA Comments: NOT GIVEN THIS ADMISSION Melatonin (Melatonin) 10 MG TABLET 2 Tablet ORAL Every night Comments: Last Taken: 07/05/17 Time: 9:17P.M Hydrocodone/Acetaminophen ([place] 7.5-325 Tablet) 7.5 MG-325 MG TABLET 1-2 Tablet ORAL EVERY 4-6 HOURS as needed for postop pain Qty = 30 Comments: NOT GIVEN THIS ADMISSION Copies To: Gabriel Potter MD
[2017-07-06 09:32] VITALS: BP 160/80
[2017-07-06 14:31] VITALS: BP 128/80
[2017-07-06 20:57] VITALS: BP 128/80
== END 2017-07-06 23:34 | disposition short-term general hospital (02) ==
LOC: ERH 14:43 → ERHI 22:15 → 2NA 22:15 → ENRESERV 23:39 → 2NA 07-05 00:38 → ENPENDDIS 07-06 09:01 → 2NA 07-06 23:34
PROVIDERS: Physician Assistant Medical; Physician Assistant Surgical
DX: K56.609 Unspecified intestinal obstruction, unspecified as to partial versus complete obstruction (principal); K59.09 Other constipation; F17.200 Nicotine dependence, unspecified, uncomplicated; R01.1 Cardiac murmur, unspecified; G89.29 Other chronic pain; K64.8 Other hemorrhoids
CPT/HCPCS: 36592; 74177; 81001; 81025; 82436; 96372; 96374; 96375; G0378; J0131; J1644; J2270; J3490; J7042; S5012